=== PATIENT | male | born 1960 | race Caucasian/White ===

== ENCOUNTER 2016-10-09 16:06 | Inpatient (IN) | payer BC ==
[2016-10-09] MEDS ORDERED: Heparin DRIP 25,000 UNITS(*) 25,000 UNITS/500 ML BAG IV ONE (16:29)
[2016-10-09] MEDS ORDERED: NS 0.9% 1000 ML* 1,000 ML IV ONE ×2 (16:31→18:09)
[2016-10-09 16:34] LABS: Hematocrit 45 % (42-52); Hemoglobin 14.9 g/dl (14.0-18.0); Mean Corpuscular HGB Conc 33 g/dl (31-36); Mean Corpuscular Hemoglobin 30 pg (27-31); Mean Corpuscular Volume 89 fL (80-94); Mean Platelet Volume 10 um3 (7.4-10.4); Red Blood Count 5.06 10^6/ul (4.0-5.4); Red Cell Distribution Width 13 % (10.5-15); White Blood Count 14.8 10^3/ul (3.5-10.8)
[2016-10-09] MEDS ORDERED: Heparin DRIP 25,000 UNITS(*) 25,000 UNITS/500 ML BAG IVPB SCH ×2 (16:45→18:15)
[2016-10-09 16:50] LABS: BUN/Creatinine Ratio 21.7 (8-20); Calcium 9.1 mg/dL (8.6-10.3); EGFR African American 93.3 (>60); EGFR Non-African American 72.5 (>60); Globulin 3.1 g/dL (2-4); Potassium 4.1 mmol/L (3.5-5.0); Total Bilirubin 0.9 mg/dL (0.2-1.0); Total Protein 7.1 g/dL (6.4-8.9)
[2016-10-09 16:55] LABS: Troponin I 1.06 ng/mL (<0.04)
[2016-10-09] MEDS ORDERED: Heparin VIAL(*) 5000 UNITS/ML VIAL (FIVE THOUSAND) ONE (16:55)
[2016-10-09] MEDS ORDERED: Iohexol 350* (CONTRAST) 500 ML MDV IV ONE (16:57)
[2016-10-09] MEDS ORDERED: Heparin VIAL(*) 5000 UNITS/ML VIAL (FIVE THOUSAND) IV SCH ×4 (17:00→19:00)
[2016-10-09] MEDS ORDERED: oxyCODONE/Acetamin 5/325 MG* TAB PO PRN (18:03)
[2016-10-09] MEDS ORDERED: Ondansetron INJ* 2 MG/ML VIAL IV PRN (18:03)
--- NOTE | 2016-10-09 18:08 | RAD ---
Indication: Shortness of breath status post leg surgery. Contrast: Administered 79.8 ml of OMNIPAQUE 350 mgi/ml CTA of the chest was performed after IV contrast administration. Coronal and sagittal reconstructed images were obtained. There are large filling defects in both pulmonary arteries filling the main pulmonary artery, lower lobe branches of the pulmonary artery. Findings are consistent with a saddle embolus. There is no mediastinal or hilar adenopathy. The heart demonstrates no pericardial effusion. The trachea and major bronchi appear patent. Lung san demonstrate no evidence of pleural fluid, nodules or masses. There is no mediastinal or hilar adenopathy. The visualized abdominal organs are unremarkable. IMPRESSION: Multiple large pulmonary embolus is noted in both main pulmonary arteries extending to the lobar and segmental branches of the pulmonary artery.
[2016-10-09] MEDS ORDERED: NS 0.9% 1000 ML* 1,000 ML IV SCH (18:15)
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
[2016-10-09] MEDS ORDERED: Alteplase* 50 MG in PREMIX* 100 ML IVPB ONE (18:54)
[2016-10-09] MEDS ORDERED: cefTRIAXone VIAL(*) 1,000 MG in NS 0.9% 50 ML* 50 ML IVPB SCH (20:00)
[2016-10-09] MEDS ORDERED: Azithromycin IV(*) 500 MG in NS 0.9% 250 ML* 250 ML IVPB SCH (20:00)
[2016-10-09] MEDS ORDERED: ALTEPLASE ONE (20:00)
[2016-10-09] MEDS: Acetaminophen TAB* 325 MG PO PRN (20:29)
[2016-10-09] MEDS: Heparin DRIP 25,000 UNITS(*) 25,000 UNITS/500 ML BAG IV SCH (21:39)
--- NOTE | 2016-10-10 00:27 | HP ---
ADDENDUM NOW INCLUDED ON THIS REPORT HISTORY AND PHYSICAL: DATE OF ADMISSION: 10/09/16 PRIMARY CARE PROVIDER: Dr. Arroyo. ATTENDING PHYSICIAN WHILE IN THE HOSPITAL: Dr. Devaughn Nichols * (report dictated by Festus Gonzalez NP). CHIEF COMPLAINT: 1. Chest pain. 2. Shortness of breath. 3. Not feeling well. HISTORY OF PRESENT ILLNESS: Mr. Tanner is a 56-year-old male patient who previously to this was very healthy, very active. He unfortunately about a week to the day was here. He sustained a mechanical fall. He did not hit his head. He stepped off an uneven surface and he fell, injured his right ankle and came to the ER. X- rays were performed and it showed that he had a right ankle fracture. He went to the OR that day, had an ORIF of that ankle and was discharged later the same day. He comes in today, though, stating that he just felt some heaviness, tightness in his chest. Could not take a deep breath. He felt restricted. He had a sudden onset of chest pain and he was having a hard time with minimal exertion, becoming very short of breath. He came in to the ER. He was ultimately found to have a massive saddle pulmonary embolism. He had an elevated troponin of 1. He was tachycardic. He was mildly tachypneic and he was requiring 4 L of oxygen and because of these findings and the fact that he had a massive PE, we were asked to evaluate for admission. He denied any nausea or vomiting. No fevers. He denies having any recent trouble with bleeding. He denies any history of instances of bleeding and denies ever having any intracranial hemorrhage. No history of stroke as well. He came in, was evaluated, and because of acute risk, we were asked to evaluate for admission. PAST MEDICAL HISTORY: Denied. PAST SURGICAL HISTORY: He had a right ankle ORIF done a week ago. HOME MEDICATIONS: Include: 1. Aspirin 325 mg p.o. daily. 2. Ibuprofen 400 mg every 6 to 8 hours as needed for pain. ALLERGIES TO MEDICATIONS: Include no known drug allergies. FAMILY HISTORY: Mother was diabetic. His father had a AAA. SOCIAL HISTORY: He does not smoke. His healthcare proxy is his . He does not drink. 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 REVIEW OF SYSTEMS: There is no documented fever. He denied having any significant weight change. There was no double vision. He denies having any ear discharge. There is no rhinorrhea. No sore throat. No thyroid enlargement. He does admit to having chest pain, particularly when he takes a deep breath. He does admit to having dyspnea on exertion. Denies any abdominal pain. There was no nausea. No vomiting. There is no dysuria. No frequency. Denies having any syncope. Review of 14 systems completed, all others negative. PHYSICAL EXAMINATION GENERAL: At this time, Mr. Tanner is a 56-year-old male patient. He is sitting in the ER stretcher. He does appear to be in a mild amount of respiratory distress. VITAL SIGNS: Blood pressure of 129/89 with a pulse of 111. Respirations were again noted to be 26. O2 sat 95% on 4 L and his temperature was 98.0. HEENT: Head is atraumatic, normocephalic. Eyes: EOMs intact. Sclerae anicteric and not pale. Throat: Oral mucosa appears to be moist. No oropharyngeal erythema. NECK: Supple. LUNGS: Clear to auscultation bilaterally. No wheezes, rales, or rhonchi. HEART: Sounds S1, S2. He is tachycardic. ABDOMEN: Soft, flat, nontender. Bowel sounds present. EXTREMITIES: Distal CSM checks are intact to the right lower extremity. He does have a splint intact there. NEUROLOGIC: He is awake, he is alert, and he is oriented x3. His tongue is midline. Instrument Repairer [employer] are equal. No gross focal deficits. SKIN: Intact. LABORATORY DATA AND DIAGNOSTIC STUDIES: Today reveal WBC of 14.8, RBC of 5.06 , hemoglobin of 14.9, hematocrit of 45, platelet count of 201. PTT was 30.9. Sodium 136, potassium 4.1, chloride of 103, bicarb 25, BUN 23, creatinine of 1.06, glucose 165, lactic 1.4, calcium 9.1. Total bili 0.9, AST 17, ALT 20, alk phos 71. Troponin 1.06. Albumin of 4. He had a CTA of the chest which showed impression: Multiple large pulmonary embolism noted in both main pulmonary arteries extending into the lobar and subsegmental branches of the pulmonary artery, saddle pulmonary embolism. He had an EKG obtained today. I do not have a previous for comparison. It showed a sinus tachycardia rate of 112. Old medical records were reviewed. ASSESSMENT AND PLAN: Mr. Tanner is a 56-year-old male patient coming into the ER today with complaints of chest pain. On evaluation, was found to have a massive pulmonary embolism. He will be admitted under inpatient status for ICU: 1. Pulmonary embolism: At this point, I did touch base with Dr. Nichols, airport driver. I have had a long conversation with him and I contacted him several times. The concern is when I initially evaluated the patient, he is going to be tachycardic. In addition to this, his troponin is up to 1.06. He is tachypneic in the mid 20s and I am also going to put him on Vapotherm. The CT partial images were reviewed by Dr. Nichols who felt that there did appear to be some possible evidence of RV strain just on the CT scan given the size of his right ventricle. The question is should this patient receive tPA. At this point, I did touch base with Dr. Nichols. A surgery specialist is going to be coming in to do a stat echo. If there is severe RV dysfunction, then I think the patient is an appropriate candidate for half-dose tPA. I discussed this with Dr. Nichols at length and he is in agreement. He has already been started on heparin. The plan will be if there is severe dysfunction, stop the heparin drip , go ahead and give tPA half dose, 50 mg over 2 hours IV tPA, and then go ahead and restart the heparin drip and follow this patient closely in the ICU. At this point, I did discuss the risks and benefits of tPA and he is in agreement with going forward with half dose tPA. He also does state to me that he again has not had a stroke. There has been no intracranial or intraspinal surgery. The surgery that was done about 2 weeks ago was again general anesthesia according to the anesthesia paperwork. He has no intracranial conditions that he is aware of. There has been no trauma to the head and he does not have high blood pressure. The patient again has no known bleeding difficulties as well. I also touched base with the Ortho on-call who felt that given our concern, that in terms of the risk of the recent surgery a week ago, they said it was okay to go ahead and give the tPA if we decided it was appropriate based on echo. Again, I had a long discussion with Dr. Nichols about this and again we feel comfortable giving him half dose and we will continue to watch him closely on the unit pending on the results of the echo. If the echo does not show severe RV dysfunction, then we will keep him on a heparin drip, Vapotherm, and place him in the ICU for close observation and follow him. I suspect this is probably a provoked DVT. 2. Elevated troponin. I suspect this is probably from RV strain. We will continue trend these and again, Cardiology is going to evaluate. 3. DVT prophylaxis. Again, he will remain on heparin drip and he will be given tPA. We will follow. He is at high risk. 4. Fluids, electrolytes, and nutrition: I will leave him n.p.o. until we know the course of action based on giving tPA or not giving tPA. 5. Code status: Full code. TIME SPENT: Time spent on the admission which is critical care time was approximately 60 minutes; greater than half the time was spent [id number] with the patient obtaining my history and physical, other half the time spent going over the plan of care with the patient and implementing plan of care. I did discuss the plan of care with my attending, Dr. Nichols; he is in agreement. FESTUS GONZALEZ NP DATE OF ADMISSION: 10/09/16 ADDENDUM: Dr. Tee did come in and performed a stat limited ultrasound, which did show that the patient had a hypokinetic RV. He had already received heparin. I discussed the case again closely with Dr. Nichols. Because of the fact that still his systolic blood pressures are not less than 90, it was felt that we should only proceed with 50 mg doses of heparin per the MOPETT study. We will be giving him 50 mg dose, follow him closely, and then shortly thereafter, we will be going ahead and starting him back on the heparin per the recommendations of Dr. Nichols, and the heparin, when we start after the initial tPA dosing, there will not be any boluses. I did discuss the risks and benefits of this and the patient is in agreement. He does appear again with minimal exertion. He is very tachypneic. He is requiring Vapotherm. Family at this point again knows the risk and they would like to proceed with the half dose tPA at this point. FESTUS GONZALEZ NP CC: Dr. Arroyo; Dr. Tee* [id number]/[facility] #: [id number]/[facility] #: [id number] MTDD
--- NOTE | 2016-10-10 01:08 | HP ---
HISTORY AND PHYSICAL:* DATE OF ADMISSION: 10/09/16 ADDENDUM: Dr. Tee did come in and performed a stat limited ultrasound, which did show that the patient had a hypokinetic RV. He had already received heparin. I discussed the case again closely with Dr. Nichols. Because of the fact that still his systolic blood pressures are not less than 90, it was felt that we should only proceed with 50 mg doses of heparin per the MOPETT study. We will be giving him 50 mg dose, follow him closely, and then shortly thereafter, we will be going ahead and starting him back on the heparin per the recommendations of Dr. Nichols, and the heparin, when we start after the initial tPA dosing, there will not be any boluses. I did discuss the risks and benefits of this and the patient is in agreement. He does appear again with minimal exertion. He is very tachypneic. He is requiring Vapotherm. Family at this point again knows the risk and they would like to proceed with the half dose tPA at this point. FESTUS KELLEY, JULIA [id number]/[facility] #: [id number] MAGDIEL
--- NOTE | 2016-10-10 05:32 | CARD ---
LIMITED TRANSTHORACIC ECHOCARDIOGRAM: DATE OF PROCEDURE: 10/09/16 LOCATION: Done at bedside in the emergency room. DESCRIPTION OF PROCEDURE: I was asked by Mick Gonzalez NP, from the hospitalist service to do a very limited transthoracic echocardiogram in a patient who presented and found to have massive bilateral pulmonary embolism. Limited echo done at bedside in the emergency room showed the overall left ventricular systolic function to be preserved with an overall EF 50% to 55%. The right ventricle appears to be [id number] hypokinetic from the images obtained with paradoxical septal wall motion. Color flow was not performed to evaluate for valvular disease. There is no obvious pericardial effusion appreciated. The results were discussed with Mick Gonzalez NP, from the hospitalist service. [id number]/[facility] #: [id number] MTDD
[2016-10-10 06:41] LABS: Hematocrit 40 % (42-52); Hemoglobin 13.6 g/dl (14.0-18.0); Mean Corpuscular HGB Conc 34 g/dl (31-36); Mean Corpuscular Hemoglobin 30 pg (27-31); Mean Corpuscular Volume 88 fL (80-94); Mean Platelet Volume 10 um3 (7.4-10.4); Red Blood Count 4.55 10^6/ul (4.0-5.4); Red Cell Distribution Width 14 % (10.5-15); White Blood Count 12.8 10^3/ul (3.5-10.8)
[2016-10-10 06:56] LABS: Calcium 8.2 mg/dL (8.6-10.3); EGFR African American 111.2 (>60); EGFR Non-African American 86.5 (>60)
[2016-10-10 06:58] LABS: Troponin I 1.48 ng/mL (<0.04)
[2016-10-10] MEDS: Acetaminophen TAB* 325 MG PO PRN (10:37)
--- NOTE | 2016-10-10 11:06 | ECHO ---
Patient: LIZA GARVIN [facility] Rec#: [id number] : 1960 Date: 10/10/2016 Age: 56y Height: 188 cm / 74.0 in Weight: 99.8 kg / 220.0 lbs Sex: M BSA: 2.3 Room#: ICU 7 Admit Date#: 10/09/2016 Type: Inpatient Referring: Mick Gonzalez NP Reading: Kvng Jesus MD Contemporary Or Modern Dancer: Emely Gibson RN RDCS CC: Pito Arroyo MD Transthoracic Echocardiogram Indication: Pulmonary embolism S/P tPA BP: 119/78 HR: 75 Rhythm: NSR Findings History: Right ankle ORIF 1 week ago, bilateral pulmonary emboli by CTA, S/P tPA Technical Comments: The study quality is fair. The study is technically limited due to patient body habitus. Completed at 0930. Left Ventricle: The left ventricular chamber size is normal. Mild concentric left ventricular hypertrophy is observed. Mild global hypokinesis of the left ventricle is observed. There is mildly decreased left ventricular systolic function. The estimated ejection fraction is 50-55%. There is septal flattening of the interventricular septum consistent with right ventricular volume or pressure overload. There is an E to A reversal in the mitral valve flow pattern suggestive of diastolic dysfunction. Left Atrium: The left atrial chamber size is normal. Right Ventricle: The right ventricle is mild to moderately dilated. The right ventricular global systolic function is moderately reduced. Right Atrium: The right atrium is mildly dilated. Aortic Valve: The aortic valve is trileaflet. The aortic valve leaflets are mildly thickened. There is trace to mild aortic regurgitation. There is no evidence of aortic stenosis. Mitral Valve: The mitral valve leaflets appear normal. There is a trace of mitral regurgitation. There is no evidence of mitral stenosis. Tricuspid Valve: The tricuspid valve leaflets are normal. There is trace to mild tricuspid regurgitation. Unable to estimate the right ventricular systolic pressure. Pulmonic Valve: The pulmonic valve appears normal. There is mild to moderate pulmonic regurgitation. There is no pulmonic stenosis. Pericardium: There is no significant pericardial effusion. A pericardial fat pad is visualized. Aorta: There is mild dilatation of the ascending aorta. There is no dilatation of the aortic arch. There is mild dilatation of the aortic root. Pulmonary Artery: The main pulmonary artery is not well visualized. Venous: The inferior vena cava appears normal in size. There is an approximate 50% respiratory change in the inferior vena cava dimension. Conclusions Mild concentric left ventricular hypertrophy is observed. Mild global hypokinesis of the left ventricle is observed. There is mildly decreased left ventricular systolic function. The estimated ejection fraction is 50-55%. There is septal flattening of the interventricular septum consistent with right ventricular volume or pressure overload. The right ventricular global systolic function is moderately reduced. The right ventricle is mild to moderately dilated. The aortic valve leaflets are mildly thickened. There is trace to mild aortic regurgitation. There is a trace of mitral regurgitation. There is trace to mild tricuspid regurgitation. Unable to estimate the right ventricular systolic pressure. There is no significant pericardial effusion. Measurements Name Value Normal Range RVIDd (AP) 2D 4.6 cm (0.9 - 2.6) RVDdMajor (2D) 4.7 cm (2.2 - 4.4) RAd ISD 4CH 5.1 cm (3.4 - 4.9) RA (A4C)W 4.2 cm (2.9 - 4.6) IVSd (2D) 1.1 cm (0.6 - 1) LVPWd (2D) 1.1 cm (0.6 - 1) LVIDd (2D) 4.7 cm (3.6 - 5.4) LVIDs (2D) 3.3 cm - LV FS (2D) 29 % (25 - 45) Aortic Annulus 2.7 cm (1.4 - 2.6) Ao root diameter (2D) 3.9 cm (2.1 - 3.5) Ascending Ao 3.5 cm (2.1 - 3.4) Aortic arch 2.8 cm (1.8 - 3.4) LA dimension (AP) 2D 3.6 cm (2.3 - 3.8) LAd ISD 4CH 4.8 cm (2.9 - 5.3) LA ISD 4CH W 4 cm (2.5 - 4.5) Name Value Normal Range LA ESV SP 4CH (A/L) 64 ml - LA ESV SP 2CH (A/L) 60 ml - LA ESV BP (A/L) 62 ml - LA ESV BP (A/L) index 27.5 ml/m2 - LA ESV SP 4CH (MOD) 62 ml - LA ESV SP 2CH (MOD) 56 ml - LV mass (2D) 218.9 g - LV mass (2D) index 96.86 g/m2 - Name Value Normal Range MV E-wave Vmax 0.61 m/sec - MV deceleration time 264 msec - MV A-wave Vmax 0.75 m/sec - MV E:A ratio 0.8 ratio - LV septal e' Vmax 0.07 m/sec - LV lateral e' Vmax 0.12 m/sec - LV E:e' septal ratio 8.7 ratio - LV E:e' lateral ratio 5.1 ratio - Name Value Normal Range AV Vmax 1.2 m/sec - AV VTI 26.5 cm - AV peak gradient 6 mmHg - AV mean gradient 4 mmHg - LVOT Vmax 0.91 m/sec - LVOT VTI 17.9 cm - LVOT peak gradient 3 mmHg - LVOT mean gradient 2 mmHg - ELLY Vmax 0.74 m/sec - Name Value Normal Range IVC diameter 1.9 cm - Name Value Normal Range PV Vmax 0.8 m/sec -
--- NOTE | 2016-10-10 11:20 | PN ---
Progress Note - Progress Note Note: CRITICAL CARE MEDICINE Date: 10/10/16 Time: 900 SUBJECTIVE: Patient seen and examined. PHYSICAL EXAM: fit Vital Signs: Reviewed. Hr has come down from 100s to 70s overnight. RR dec. Diastolics decreased. Neurologic: nonfocal, comm well HEENT: pupils equal. Sclera anicteric. Trachea midline. Cardiovascular: S1 S2, no m appreciated Respiratory: clear bl Abdomen: Soft, nt. No r/g/r. Extremities: Warm. R ankle cast Access: piv LABS: Reviewed. IMAGING: Reviewed. MEDICATIONS: Reviewed. 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 Conveyed pts clinical condition and PE burden even without seeing images (which I did eventually see last night) and obtaining echo with proceeding to 1/2 dose tpa based on [facility] study given his submassive burden, elevated troponin, post recent ortho surgery , already on heparin and oupt asa, and maintaining SBP. Recent R ankle fx PLAN: Doing well. feels better. On heparin gtt. Can convert to xerato starting tonight. can obtain official echo today. and may need oupt f/u in 1 month if any residual R heart strain needing f/u. Off ivf. oob. po. can advance care and look to set up outpt f/u. Supportive and preventative care as ordered. Vaccine: SUP: ppi VTE prophylaxis: on heparin Disposition: ICU this am, and likely floor later, and potential dc soon Code Status: Full Critical Care Time: 35min Emily Nichols DO
--- NOTE | 2016-10-10 13:21 | PN ---
Progress Note - Progress Note Note: CRITICAL CARE MEDICINE Date: 10/10/16 Time: 1300 Doing well. can wean off O2. Hemodynamics are well. tx on heparin. can dc tonight in favor of xeralto initiation. leave on tele tonight. hopefully stable for dc tomorrow. Disposition: floor with tele. Code Status: Full Critical Care Time: 5min Emily Nichols DO
--- NOTE | 2016-10-10 15:12 | PN ---
Progress Note - Progress Note Note: I saw Mr. Tanner this afternoon. I performed his ankle surgery last Monday. They state he had been taking the aspirin. He received TPA and has been on a heparin drip. My understanding that the plan is to switch him to Xarelto today. He's feeling much better today. Exam shows that he is still mildly short of breath. He's awake, alert, and oriented. No apparent distress. The splint is clean, dry, and intact. There is no blood on the dressings. A/P: Doing better s/p massive PE yesterday. Okay to have whatever anticoagulant is deemed appropriate. I will defer to his medical team for the need for a hypercoagulability workup. I plan to see him in follow up this Monday or it can be next week if he is not quite up to making the drive this Monday. Less than 20 pounds weight bearing on the right leg.
[2016-10-10] MEDS: Heparin DRIP 25,000 UNITS(*) 25,000 UNITS/500 ML BAG IV SCH (21:08)
[2016-10-10] MEDS: Rivaroxaban TAB(*) 15 MG PO SCH (21:25)
[2016-10-11 05:14] LABS: BUN/Creatinine Ratio 19.6 (8-20); Calcium 8.8 mg/dL (8.6-10.3); EGFR African American 103.3 (>60); EGFR Non-African American 80.4 (>60); Potassium 4.3 mmol/L (3.5-5.0)
[2016-10-11 05:20] LABS: Hematocrit 42 % (42-52); Hemoglobin 13.8 g/dl (14.0-18.0); Mean Corpuscular HGB Conc 33 g/dl (31-36); Mean Corpuscular Hemoglobin 29 pg (27-31); Mean Corpuscular Volume 89 fL (80-94); Mean Platelet Volume 10 um3 (7.4-10.4); Red Blood Count 4.72 10^6/ul (4.0-5.4); Red Cell Distribution Width 14 % (10.5-15); White Blood Count 11.3 10^3/ul (3.5-10.8)
[2016-10-11 08:55] VITALS: BP 127/76
[2016-10-11] MEDS: Rivaroxaban TAB(*) 15 MG PO SCH (09:01)
--- NOTE | 2016-10-11 13:41 | DS ---
CC: Dr. Arroyo; Dr. Rubio * DISCHARGE SUMMARY: DATE OF ADMISSION: 10/09/16 DATE OF DISCHARGE: 10/11/16 PRIMARY CARE PROVIDER: Dr. Arroyo. FURNACE OPERATOR: Dr. Nichols. * (DICTATED BY ELE STRONG) CONSULTING LEAF COVERER: Dr. Tee. PRIMARY DISCHARGE DIAGNOSES: 1. Bilateral pulmonary embolism with acute cor pulmonale, receiving TPA. 2. Demand ischemia likely secondary to right ventricular strain. DISCHARGE MEDICATIONS: Xarelto 15 mg p.o. twice daily x21 days, to be followed by 20 mg p.o. once daily for a total of 6 months. Medication changes: 1. Discontinue full dose aspirin. 2. Start Xarelto. HOSPITAL IMAGIN. CTA of the chest demonstrates multiple large pulmonary embolus noted in both main pulmonary arteries extending to the lobar and segmental branches of the pulmonary artery. 2. Transthoracic echocardiogram demonstrates mild global hypokinesis of the left ventricle with estimated ejection fraction of 50% to 55%. There is septal flattening of the intraventricular septum consistent with right ventricular volume or pressure overload with a right ventricular global systolic function that is moderately reduced and dilated. No significant valvular disease. HOSPITAL COURSE: This is an otherwise healthy 56-year-old gentleman who underwent ORIF of his right ankle approximately 1 week prior to admission, who presented to the emergency department with complaints of chest pain and shortness of breath. His pain has started earlier in the day mostly as a heaviness and tightness sensation in his chest and he felt that he was unable to take a deep breath and then had a sudden onset of severe chest pain and became quite dyspneic with mild activity. When he reached the emergency department, initial vitals did not demonstrate significant hypoxia, but he was tachycardic about 110 beats per minute with normal blood pressure, but he was tachypneic with a respiratory rate in the mid 20s or so. Initial labs showed a mild leukocytosis with a white blood cell count of 14,800 and his initial troponin was elevated at 1.06. His initial EKG showed a sinus rhythm with perhaps some mild ST elevation, mostly appreciated in mid precordial leads. No old EKG was available for comparison at that time. D- dimer was not checked, but the patient went straight to CTA which showed large bilateral PEs involving both main pulmonary arteries. [employer] was asked to come to do a stat bedside echocardiogram to evaluate right ventricular function which was noted to be moderately reduced and the patient was quite dyspneic with a large clot burden. Decision was made after consulting with bordereau clerk, Dr. Nichols, to give TPA. The patient responded quite well and his symptoms improved significantly after receiving the TPA. He remained hemodynamically stable. His dyspnea and tachycardia improved. The patient's oxygen needs decreased significantly as well and he had no further complaints of chest pain or dyspnea with mild exertion. DISPOSITION AND FOLLOWUP PLAN: The patient is being discharged to home where he lives with his . He will be anticoagulated with Xarelto as described above. He will need a new prescription after the initial 3 weeks is up and start on 20 mg once daily. We would recommend a repeat echocardiogram between 2 and 4 weeks to reevaluate right ventricular function. The patient does not require supplemental oxygen returning home. Recommend close followup with primary care provider to review hospital stay. He will need to be anticoagulated for 6 months, at which point could consider coagulopathy workup. ELE STRONG [id number]/[facility] #: [id number] MAGDIEL
== END 2016-10-11 10:30 | disposition home or self-care (01) | DRG 134 ==
LOC: ED 16:06 → ICU 17:58 → MEDTELE 10-10 14:53
PROVIDERS: ADMIT Internal Medicine Critical Care Medicine; ATTEND Internal Medicine
DX: I26.02 Saddle embolus of pulmonary artery with acute cor pulmonale (principal); I24.8 Other forms of acute ischemic heart disease; R74.8 Abnormal levels of other serum enzymes; I51.9 Heart disease, unspecified; Z98.890 Other specified postprocedural states; Z83.3 Family history of diabetes mellitus
CPT/HCPCS: 36415; 71275; 80048; 80053; 83605; 84484; 85025; 85610; 85730; 87040; 87641; 93005; 93306; 93308; A9270-GY; J0456; J0696; J1644; J2997; Q9967

== ENCOUNTER 2017-09-12 08:24 | Emergency (ER) | payer BC ==
[2017-09-12 08:36] VITALS: BP 156/88
--- NOTE | 2017-09-12 08:47 | UC ---
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 TODAY HE HAD SOME DISCOMFORT RIGHT UPPER BACK. NOTICED A TICK. REMOVED IT BUT THERE ARE SOME TICK PARTS REMAINING. TICK WAS ENGORGED. - History of Current Complaint Chief Complaint: UCSkin Time Seen by Provider: 09/12/17 08:39 Stated Complaint: TICK BITE Hx Obtained From: Patient Onset/Duration: Gradual Onset, Lasting Days - 1 DAY, Still Present Timing: Constant Onset Severity: Mild Current Severity: Mild Pain Intensity: 0 Pain Scale Used: 0-10 Numeric Location: Discrete - RIGHT UPPER BACK Character: Redness, Painful Aggravating Factor(s): Touch Alleviating Factor(s): Nothing Associated Signs & Symptoms: Positive: Tenderness Related History: Possible Reaction to: Insect - Allergy/Home Medications Allergies/Adverse Reactions: Allergies Allergy/AdvReac Type Severity Reaction Status Date / Time No Known Allergies Allergy Verified 09/12/17 08:36 Review of Systems Constitutional: Negative Skin: Other - TICK BITE WITH SURROUNDING ERYTHEMA Respiratory: Negative Cardiovascular: Negative Gastrointestinal: Negative All Other Systems Reviewed And Are Negative: Yes PMH/Surg Hx/FS Hx/Imm Hx - Additional Past Medical History Additional PMH: DVT/PE S/P LEG FRACTURE - Surgical History Surgical History: Yes Surgery Procedure, Year, and Place: [place] [facility] [place] [facility] [place]. ORIF right leg - Family History Known Family History: Positive: Cardiac Disease, Hypertension - Social History Alcohol Use: Occasionally Alcohol Amount: 3 vodkas Substance Use Type: None Smoking Status (MU): Never Smoked Tobacco Household Exposure Type: Cigarettes - Immunization History Most Recent Influenza Vaccination: February 2016 Most Recent Tetanus Shot: states probably within 5 years but is not 100% sure Most Recent Pneumonia Vaccination: never Physical Exam Triage Information Reviewed: Yes Appearance: Well-Appearing, No Pain Distress, Well-Nourished Vital Signs: Initial Vital Signs Temp 98.2 F 09/12/17 08:33 Pulse 64 09/12/17 08:33 Resp 16 09/12/17 08:33 BP 156/88 09/12/17 08:33 Pulse Ox 97 09/12/17 08:33 Vital Signs Reviewed: Yes Eyes: Positive: Conjunctiva Clear ENT: Positive: Hearing grossly normal Neck: Positive: Supple Respiratory: Positive: No respiratory distress, No accessory muscle use Cardiovascular: Positive: Pulses Normal Abdomen Description: Positive: Soft Musculoskeletal: Positive: No Edema Neurological: Positive: Alert Psychological: Positive: Age Appropriate Behavior Skin: Positive: Other - TICK BITE SITE RIGHT UPPER BACK WITH RETAINED TICK PARTS Course/Dx - Course Course Of Treatment: TICK PARTS REMOVED WITHOUT DIFFICULTY USING [employer]UGE AND [employer]PLINTER [employer]. - Diagnoses Provider Diagnoses: TICK BITE, LYME PEP Discharge - Sign-Out/Discharge Documenting (check all that apply): Discharge/Admit/Transfer - Discharge Plan Condition: Stable Disposition: HOME Prescriptions: Doxycycline Monohydrate [Doxycycline Monohydrate] 2 cap PO ONCE #2 cap Patient Education Materials: Tick Bite (ED) Referrals: Pito Arroyo MD [Primary Care Provider] - If Needed Additional Instructions: TICK BITE PROPHYLAXIS You received 200mg of doxycycline for prophylaxis against Lyme disease. The Infectious Disease Society of [place] (IDSA) does not generally recommend antimicrobial prophylaxis for prevention of Lyme disease after a recognized tick bite. However, in areas that are highly endemic for Lyme disease, a single dose of doxycycline may be offered to adult patients (200 mg) who are not and to children older than 8 years of age (4 mg/kg up to a maximum dose of 200 mg) when all of the following circumstances exist: CRITERIA FOR RECEIVING PROPHYLACTIC TREATMENT FOR LYME DISEASE 1) TICK ATTACHED FOR AT LEAST 36 HRS 2) TICK IS AN ADULT OR [place] DEER TICK 3) YOU LIVE IN AN AREA WHERE LYME DISEASE IS PREVALENT (i.e., [place], [place], [place], , [place] , [place], [place], [place], [place], [place], [place], [place], [place], [place]) 4) YOU HAVE NO CONTRAINDICATION TO THE MEDICATION (DOXYCYCLINE) 5) PROPHYLAXIS IS BEGUN WITHIN 72 HRS OF TICK REMOVAL BE VIGILANT OF YOUR SYMPTOMS AND DON'T HESITATE TO GET SEEN AGAIN IF YOU DEVELOP UNEXPLAINED FEVER, HEADACHE, JOINT PAIN, BODY ACHES, RASH OR ANY OTHER CONCERNING SYMPTOMS. Antibiotic treatment following a tick bite is not recommended as a means to prevent anaplasmosis, babesiosis, ehrlichiosis, or [place] spotted fever. There is no evidence this practice is effective, and it may simply delay onset of disease. Instead, persons who experience a tick bite should be alert for symptoms suggestive of tickborne illness and consult a physician if fever, rash, or other symptoms of concern develop. - Billing Disposition and Condition Condition: STABLE Disposition: HOME
== END 2017-09-12 08:50 | disposition home or self-care (01) ==
LOC: UCEAST 08:24
DX: S20.461A Insect bite (nonvenomous) of right back wall of thorax, initial encounter (principal); W57.XXXA Bitten or stung by nonvenomous insect and other nonvenomous arthropods, initial encounter; Y93.H9 Activity, other involving exterior property and land maintenance, building and construction; Y92.096 Garden or yard of other non-institutional residence as the place of occurrence of the external cause; Z86.718 Personal history of other venous thrombosis and embolism; Z86.711 Personal history of pulmonary embolism
CPT/HCPCS: 99212; G0463

== ENCOUNTER 2018-09-26 12:11 | Inpatient (IN) | payer BC ==
--- OUTSIDE RECORDS SUMMARY | 2018-09-26 12:17 | XMS REPORT | Continuity of Care Document ---
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 Onset: 11/23/2016 Inactive Problems Allergic rhinitis Rupesh Whiting M.D. Onset: 06/27/2012 Inactive: 07/03/2017 Cellulitis and abscess of upper limb Александр Chaudhry M.D. Onset: 12/25/2012 Inactive: 07/03/2017 Eruption Александр Chaudhry M.D. Onset: 12/25/2012 Inactive: 07/03/2017 Umbilical hernia Pito Arroyo M.D. Onset: 09/25/2013 Inactive: 07/03/2017 Open wound of finger with complication Pito Arroyo M.D. Onset: 2013 Inactive: 07/03/2017 Benign neoplasm of colon Pito Arroyo M.D. Onset: 02/10/2015 Inactive: 07/03/2017 Acute cor pulmonale Pito Arroyo M.D. Onset: 11/23/2016 Inactive: 07/03/2017 Family History Date Family Member(s) Observation Comments Father Abdominal Aortic Aneurysm Social History Type Date Description Comments Sex Unknown Living Situation Lives with spouse Employment Currently working Tobacco Use Start: Unknown Nonsmoker ETOH Use Social Alcohol Tobacco Use Start: Unknown Patient has never smoked Allergies, Adverse Reactions, Alerts Description No Known Drug Allergies Medications Active Medications SIG Qnty Indications Ordering Provider Date No Active Medications Unknown 07/03/2017 History Medications Enoxaparin Sodium 100 mg sq two 30ml Pito Arroyo, 11/23/2016 - times a day M.D. 11/28/2016 100mg/ml Solution Warfarin Sodium take 1 tablet by 90tabs Pito Arroyo, 11/23/2016 - 5mg mouth every day M.D. 04/11/2017 Tablets Xarelto 1 by mouth every 90tabs Pito Arroyo, 11/02/2016 - 20mg Tablets day M.D. 11/23/2016 Doxycycline Hyclate 1 po bid 28caps 682.3 Александр Chaudhry, 12/25/2012 - M.D. 04/22/2013 100mg Capsules No Active Unknown 07/26/2012 - Medications 12/25/2012 Viagra take 1/2 to 1 10tabs V41.7 Pito Arroyo, 02/18/2009 - 100mg Tablets tablet 15 minutes M.D. 07/26/2012 prior to sexual activity as directed Keflex 1 po bid 20caps Александр Chaudhry, 02/02/2006 - 500mg Capsules M.D. 04/10/2007 Clarinex 1 po qd 30tabs 477.8 Pito Arroyo, 07/06/2005 - 5mg Tablets M.D. 02/02/2006 Astelin 2 sprays/nostril 30cc 477.8 Pito Arroyo, 07/06/2005 - 137mcg/[place] bid prn M.D. 02/02/2006 Xarelto 1 by mouth twice 90tabs Pito Arroyo, - 15mg Tablets a day M.D. 11/02/2016 Xarelto 1 by mouth every Unknown - 15mg Tablets day 07/04/2017 Medications Administered in Office Medication SIG Qnty Indications Ordering Provider Date Injection Subcutaneous Or Pito Arroyo M.D. 11/23/2016 Intramuscular Injection Immunizations CPT Code Status Date Vaccine Lot # [id number] Given 04/11/2017 Influenza vac quadrivalent preservative free 3yrs [id number] [place] [id number] Given 05/18/2016 Influenza Vac, Quadrivalent, Slit Virus, Im [id number] Given 02/10/2015 Influenza Vac, Quadrivalent, Slit Virus, Im [id number] Given 04/22/2014 Tetanus And Diptheria Adult Preservative Free >7Yrs 73870 Given 02/18/2009 Tdap Tetanus, W Pertussis [id number] Vital Signs Date Vital Result Comment 09/26/2018 10:24am BP Systolic 104 mmHg BP Diastolic 70 mmHg Heart Rate 133 /min Body Temperature 97.7 F Respiratory Rate 16 /min O2 % BldC Oximetry 98 % Height 73.75 inches 6'1.75" Weight 241.00 lb BMI (Body Mass Index) 31.1 kg/m2 10/10/2017 11:21am BP Systolic 124 mmHg BP Diastolic 82 mmHg Heart Rate 56 /min Body Temperature 97.2 F Respiratory Rate 16 /min Height 73.75 inches 6'1.75" Weight 231.00 lb BMI (Body Mass Index) 29.9 kg/m2 07/03/2017 10:51am BP Systolic 136 mmHg BP Diastolic 80 mmHg Heart Rate 68 /min Body Temperature 98.1 F Respiratory Rate 16 /min Height 73.75 inches 6'1.75" Weight 227.00 lb BMI (Body Mass Index) 29.3 kg/m2 04/11/2017 9:15am BP Systolic 122 mmHg BP Diastolic 64 mmHg Heart Rate 60 /min Body Temperature 97.5 F Respiratory Rate 16 /min Height 73.75 inches 6'1.75" Weight 229.25 lb BMI (Body Mass Index) 29.6 kg/m2 11/23/2016 7:53am BP Systolic 120 mmHg BP Diastolic 76 mmHg Heart Rate 84 /min Body Temperature 97.5 F Respiratory Rate 16 /min Height 73.75 inches 6'1.75" Weight 226.38 lb BMI (Body Mass Index) 29.3 kg/m2 10/18/2016 11:15am BP Systolic 104 mmHg BP Diastolic 64 mmHg Heart Rate 80 /min Body Temperature 97.9 F Respiratory Rate 16 /min O2 % BldC Oximetry 98 % Height 73.75 inches 6'1.75" 05/26/2016 3:36pm BP Systolic 122 mmHg BP Diastolic 70 mmHg Heart Rate 88 /min Body Temperature 97.7 F Respiratory Rate 12 /min Height 73.75 inches 6'1.75" Weight 245.00 lb BMI (Body Mass Index) 31.7 kg/m2 05/18/2016 12:51pm BP Systolic 150 mmHg BP Diastolic 90 mmHg Heart Rate 60 /min Body Temperature 96.9 F Respiratory Rate 12 /min Height 73.75 inches 6'1.75" Weight 246.00 lb BMI (Body Mass Index) 31.8 kg/m2 02/10/2015 9:09am BP Systolic 124 mmHg BP Diastolic 72 mmHg Heart Rate 68 /min Body Temperature 97.8 F Respiratory Rate 16 /min Height 74 inches 6'2" Weight 240.00 lb BMI (Body Mass Index) 30.8 kg/m2 05/13/2014 10:50am BP Systolic 110 mmHg BP Diastolic 70 mmHg Heart Rate 68 /min Body Temperature 97.4 F Respiratory Rate 16 /min Height 74 inches 6'2" Weight 244.00 lb BMI (Body Mass Index) 31.3 kg/m2 05/02/2014 8:12am BP Systolic 112 mmHg BP Diastolic 70 mmHg Heart Rate 70 /min Body Temperature 97.9 F Respiratory Rate 14 /min Height 74 inches 6'2" Weight 244.00 lb BMI (Body Mass Index) 31.3 kg/m2 09/25/2013 8:36am BP Systolic 100 mmHg BP Diastolic 70 mmHg Heart Rate 68 /min Body Temperature 96.8 F Respiratory Rate 12 /min Height 74 inches 6'2" Weight 237.00 lb BMI (Body Mass Index) 30.4 kg/m2 04/22/2013 10:22am BP Systolic 130 mmHg BP Diastolic 80 mmHg Heart Rate 60 /min Body Temperature 97.2 F Respiratory Rate 12 /min Height 74 inches 6'2" Weight 241.00 lb BMI (Body Mass Index) 30.9 kg/m2 12/25/2012 1:53pm BP Systolic 128 mmHg BP Diastolic 90 mmHg Heart Rate 84 /min Body Temperature 100.1 F Respiratory Rate 16 /min Height 74 inches 6'2" Weight 231.25 lb BMI (Body Mass Index) 29.7 kg/m2 07/26/2012 4:04pm BP Systolic 120 mmHg BP Diastolic 90 mmHg Heart Rate 64 /min Body Temperature 97.6 F Respiratory Rate 12 /min Height 74 inches 6'2" Weight 245.00 lb BMI (Body Mass Index) 31.5 kg/m2 Right Visual Acuity Distance 20/40 uncorrected Left Visual Acuity Distance 20/25 uncorrected 06/27/2012 9:30am BP Systolic 140 mmHg BP Diastolic 90 mmHg Heart Rate 76 /min Body Temperature 97.7 F Respiratory Rate 18 /min Height 74 inches 6'2" Weight 244.00 lb BMI (Body Mass Index) 31.3 kg/m2 08/06/2009 2:57pm BP Systolic 140 mmHg BP Diastolic 90 mmHg Heart Rate 72 /min Body Temperature 98.3 F Respiratory Rate 16 /min O2 % BldC Oximetry 98 % Height 74 inches 6'2" Weight 250.00 lb BMI (Body Mass Index) 32.1 kg/m2 02/18/2009 6:39pm BP Systolic 132 mmHg BP Diastolic 80 mmHg Heart Rate 80 /min Body Temperature 98.5 F Respiratory Rate 16 /min Height 74 inches 6'2" Weight 243.00 lb BMI (Body Mass Index) 31.2 kg/m2 04/10/2007 10:57am BP Systolic 130 mmHg BP Diastolic 86 mmHg Heart Rate 68 /min Body Temperature 97.5 F Respiratory Rate 12 /min Weight 230.00 lb 02/02/2006 1:31pm BP Systolic 130 mmHg BP Diastolic 84 mmHg Heart Rate 72 /min 07/06/2005 8:55am BP Systolic 124 mmHg BP Diastolic 80 mmHg Heart Rate 72 /min Body Temperature 98.2 F Respiratory Rate 16 /min Weight 224.00 lb 09/08/2004 3:02pm BP Systolic 130 mmHg BP Diastolic 86 mmHg Heart Rate 72 /min Respiratory Rate 18 /min Weight 224.00 lb Results Test Date Facility Test Result H/L Range Note Laboratory test 09/26/2018 [facility] Troponin-I/T <0.05 NG/ML 0- 0.64 finding (607)- - nI D Dimer Quant (Fma) <100 ng/mL 0.0-400 Lipid Profile 07/03/2017 [facility](fma) Cholesterol 197 mg/dL 120- 200 Triglycerides 134 mg/dL 30-200 HDL Cholesterol 40 mg/dL 30-70 LDL (Calculated) 130 CALC High 0-129 VLDL Cholesterol 27 mg/dL 0-50 HDL Risk Factor 4.9 CALC High 0.0-4.4 Comprehensive Metabolic 07/03/2017 [facility](fma) Sodium 135 mEq/L 134-149 Prof Potassium 4.1 mEq/L 3.6-5.5 Chloride 96 mEq/L 94-112 Carbon Dioxide 24 mEq/L 21-32 Glucose 93 mg/dL 70-105 BUN 25 mg/dL 6-26 Creatinine 0.9 mg/dL 0.6-1.4 BUN/Creat Ratio 27.8 CALC 8.0-36.0 Calcium 9.8 mg/dL 8.6-10.2 Total Protein 6.9 g/dL 6.4-8.3 Albumin 4.6 g/dL 3.8-5.5 Globulin 2.3 g/dL 2.0-4.8 A/G Ratio 2.0 CALC 0.6-2.3 Alk. Phosphatase 74 U/L 22-95 Alt (SGPT) 18 U/L 7-35 Ast (Sgot) 15 U/L 5-34 Total Bilirubin 0.7 mg/dL 0.2-1.3 GFR Non- >60 ml/min/1.73m^ >=60 GFR >60 ml/min/1.73m^ >=60 Laboratory test 07/03/2017 [facility](fma) PSA 0.9 ng/mL 0.0-4.0 finding Laboratory test 12/19/2016 [facility] Inr/Protime 1.83 High 0.89-1.11 finding Laboratory test 12/16/2016 [facility] Inr (Fma) 2.1 2.0-3.0 finding (607)- - Laboratory test 12/06/2016 [facility] In[facility] (Fma) 3.0 2.0-3.0 finding (607)- - Laboratory test 12/02/2016 [facility] In[facility] (Fma) 2.8 2.0-3.0 finding (607)- - Laboratory test 11/30/2016 [facility] In[facility] (Fma) 2.5 2.0-3.0 finding (607)- - Laboratory test 11/28/2016 [facility] In[facility] (Fma) 1.6 Low 2.0-3.0 finding (607)- - Laboratory test 11/23/2016 [facility] Hemoglobin A1c 5.8 % High 4.1- 5.7 finding (607)- - (Fma) Lipid Profile 11/23/2016 Os[facility] Aquino([facility]) Cholesterol 192 mg/dL 120- 200 Triglycerides 92 mg/dL 30-200 HDL Cholesterol 42 mg/dL 30-70 LDL (Calculated) 132 CALC High 0-129 VLDL Cholesterol 18 mg/dL 0-50 HDL Risk Factor 4.6 CALC High 0.0-4.4 Comprehensive Metabolic 11/23/2016 Osito Kenia([facility]) Sodium 134 mEq/L 134-149 Prof Potassium 4.1 mEq/L 3.6-5.5 Chloride 95 mEq/L 94-112 Carbon Dioxide 23 mEq/L 21-32 Glucose 126 mg/dL High 70-105 BUN 24 mg/dL 6-26 Creatinine 1.1 mg/dL 0.6-1.4 BUN/Creat Ratio 21.8 CALC 8.0-36.0 Calcium 9.7 mg/dL 8.6-10.2 Total Protein 7.3 g/dL 6.4-8.3 Albumin 4.6 g/dL 3.8-5.5 Globulin 2.7 g/dL 2.0-4.8 A/G Ratio 1.7 CALC 0.6-2.3 Alk. Phosphatase 63 U/L 22-95 Alt (SGPT) 14 U/L 7-35 Ast (Sgot) 12 U/L 5-34 Total Bilirubin 1.3 mg/dL 0.2-1.3 GFR Non- >60 ml/min/1.73m^ >=60 GFR >60 ml/min/1.73m^ >=60 Lipid Profile 05/18/2016 Osito Aquino([facility]) Cholesterol 231 mg/dL High 120-200 Triglycerides 147 mg/dL 30-200 HDL Cholesterol 46 mg/dL 30-70 LDL (Calculated) 156 CALC High 0-129 VLDL Cholesterol 29 mg/dL 0-50 HDL Risk Factor 5.0 CALC High 0.0-4.4 Comprehensive Metabolic 05/18/2016 Osito Kenia([facility]) Sodium 140 mEq/L 134-149 Prof Potassium 4.4 mEq/L 3.6-5.5 Chloride 98 mEq/L 94-112 Carbon Dioxide 31 mEq/L 21-32 Glucose 115 mg/dL High 70-105 1 BUN 19 mg/dL 6-26 Creatinine 1.0 mg/dL 0.6-1.4 BUN/Creat Ratio 19.0 CALC 8.0-36.0 Calcium 9.5 mg/dL 8.6-10.2 Total Protein 7.0 g/dL 6.4-8.3 Albumin 4.5 g/dL 3.8-5.5 Globulin 2.5 g/dL 2.0-4.8 A/G Ratio 1.8 CALC 0.6-2.3 Alk. Phosphatase 63 U/L 22-95 Alt (SGPT) 27 U/L 7-35 Ast (Sgot) 17 U/L 5-34 Total Bilirubin 1.0 mg/dL 0.2-1.3 GFR Non- >60 ml/min/1.73m^ >=60 GFR >60 ml/min/1.73m^ >=60 Laboratory 05/18/2016 [facility](fma) PSA 1.1 ng/mL 0.0-4.0 2 test finding Laboratory 05/18/2016 [facility] Hepatitis C Nonreactive N Nonreactive 3 test finding Antibody Laboratory 11/17/2015 [facility] Surgical SEE RESULT 4 test finding Pathology BELOW Laboratory 02/10/2015 [facility] Hemoglobin 5.8 g/dL Low 12.1 - 17.2 test finding (607)- - (Fma/CMC/CTX) Laboratory 02/10/2015 [facility](fma) PSA 1.2 ng/mL 0.0-4.0 test finding Lipid Profile 02/10/2015 [facility] Kenia(fma) Cholesterol 231 mg/dL High 120-200 Triglycerides 116 mg/dL 30-200 HDL Cholesterol 47 mg/dL 30-70 LDL (Calculated) 161 CALC High 0-129 VLDL Cholesterol 23 mg/dL 0-50 HDL Risk Factor 4.9 CALC High 0.0-4.4 Comprehensive Metabolic 02/10/2015 [facility] Kenia(fma) Sodium 140 mEq/L 134-149 Prof Potassium 4.5 mEq/L 3.6-5.5 Chloride 102 mEq/L 94-112 Carbon Dioxide 26 mEq/L 21-32 Glucose 125 mg/dL High 70-105 5 BUN 25 mg/dL 6-26 Creatinine 1.0 mg/dL 0.6-1.4 BUN/Creat Ratio 25.0 CALC 8.0-36.0 Calcium 9.7 mg/dL 8.6-10.2 Total Protein 7.0 g/dL 6.4-8.3 Albumin 4.5 g/dL 3.8-5.5 Globulin 2.5 g/dL 2.0-4.8 A/G Ratio 1.8 CALC 0.6-2.3 Alk. Phosphatase 59 U/L 22-95 Alt (SGPT) 27 U/L 7-35 Ast (Sgot) 19 U/L 5-34 Total Bilirubin 1.3 mg/dL 0.2-1.3 GFR Non- >60 ml/min/1.73m^ >=60 GFR >60 ml/min/1.73m^ >=60 Laboratory test 09/25/2013 [facility] Kenia(fma) PSA 1.6 ng/mL 0.0-4.0 finding Lipid Profile 09/25/2013 [facility] Kenia(fma) Cholesterol 188 mg/dL 120- 200 Triglycerides 68 mg/dL 30-200 HDL Cholesterol 42 mg/dL 30-70 LDL (Calculated) 132 CALC High 0-129 VLDL Cholesterol 14 mg/dL 0-50 HDL Risk Factor 4.5 CALC High 0.0-4.4 Comprehensive Metabolic 09/25/2013 [facility] Kenia(fma) Sodium 138 mEq/L 134-149 Prof Potassium 4.2 mEq/L 3.6-5.5 Chloride 103 mEq/L 94-112 Carbon Dioxide 26 mEq/L 21-32 Glucose 115 mg/dL High 70-105 6 BUN 23 mg/dL 6-26 Creatinine 1.2 mg/dL 0.6-1.4 BUN/Creat Ratio 19.2 CALC 8.0-36.0 Calcium 9.8 mg/dL 8.6-10.2 Total Protein 6.9 g/dL 6.3-8.1 Albumin 4.7 g/dL 3.8-5.5 Globulin 2.0 g/dL 2.0-4.8 A/G Ratio 2.1 CALC 0.6-2.3 Alk. Phosphatase 72 U/L 22-95 Alt (SGPT) 20 U/L 10-40 Ast (Sgot) 15 U/L 5-34 Total Bilirubin 1.3 mg/dL 0.2-1.3 Lipid Profile 04/22/2013 [facility] Kenia(fma) Cholesterol 222 mg/dL High 120-200 HDL 44 mg/dL 30-70 Triglycerides 121 mg/dL 30-200 HDL Risk Factor 5.1 CALC High 0.0-4.4 LDL (Calculated) 154 CALC High 0-129 VLDL (Calculated) 24 mg/dL 0-50 Basic Metabolic Profile 04/22/2013 Osito Aquino([facility]) BUN 27 mg/dL High 6-26 7 Calcium 9.2 mg/dL 8.6-10.2 Chloride 102 mEq/L 94-112 Creatinine 1.3 mg/dL 0.6-1.4 Carbon Dioxide 25 mEq/L 21-32 Glucose 121 mg/dL High 70-105 8 Sodium 142 mEq/L 134-149 Potassium 5.0 mEq/L 3.6-5.5 BUN/Creat Ratio 20.8 Calc 8.0-36.0 Laboratory test 04/22/2013 [facility] C Reactive < 0.5 mg/dL Less than 9 finding Protein 0.5 Laboratory test 04/22/2013 [facility] Hemoglobin A1c 5.9% % High 4.1 -5.7 finding (607)- - (a/CMC,CX) Laboratory test 12/25/2012 [facility] C-Reactive 58.7 mg/L High 0.0-5.0 10 finding 28 [facility] Protein [place], [place] [id number] [phone] [facility] Western 12/25/2012 [facility] IgG P93 Ab. Absent Blot Ser 28 [place] [address] [phone] IgG P66 Ab. Absent IgG P58 Ab. Absent IgG P45 Ab. Absent IgG P41 Ab. Absent IgG P39 Ab. Absent IgG P30 Ab. Absent IgG P28 Ab. Absent IgG P23 Ab. Absent IgG P18 Ab. Absent Lyme IgG WB Interp. Negative 11 IgM P41 Ab. Absent IgM P39 Ab. Absent IgM P23 Ab. Absent Lyme IgM WB Interp. Negative 12 CBC Electronic ([facility]) 12/25/2012 [facility] WBC 8.3 3.6-9.6 (607)- - RBC 5.41 3.90-5.70 Hemoglobin (Fma/CMC/CTX) 15.9 g/dL 12.1 - 17.2 Hematocrit (a/CMC/CTX) 48.0 % 36.1 - 50.3 Platelets 226 10^3/ul 150-400 Lymph% 17.1 Low 20.5-51.1 Mixed% 4.8 Neutrophils % 78.1 Mean Corpuscular Vol 89 82.2-97.4 Mean Corpuscular Hemoglobin 29.4 27.6-33.3 Mean Corpuscular Hemo Concen 33.1 32.0-36.0 RDW 13.5 11.6-13.7 Mean Platelet Volume 8.1 6.5-11.0 Surgical Pathology 08/07/2012 [facility] S RUN DATE: 08/08/ <SEE NOTE> Laboratory test 07/26/2012 [facility](a) PSA 0.90 ng/mL 0.00-4. finding 00 Lipid Profile 07/26/2012 Os[facility] Kenia(fma) Cholesterol 224 mg/dL High 120-200 HDL 38 mg/dL 30-70 Triglycerides 171 mg/dL 30-200 HDL Risk Factor 5.9 CALC High 0.0-4.4 LDL (Calculated) 152 CALC High 0-129 VLDL (Calculated) 34 mg/dL 0-50 Comprehensive Metabolic 07/26/2012 [facility] Kenia(fma) Albumin 4.9 g/dL 3.8-5.5 Prof Alk. Phos. 68 U/L 22-95 Alt (SGPT) 23 U/L 10-40 Ast (Sgot) 16 U/L 5-34 BUN 25 mg/dL 6-26 Calcium 9.5 mg/dL 8.6-10.2 Chloride 100 mEq/L 94-112 Creatinine 1.2 mg/dL 0.6-1.4 Carbon Dioxide 29 mEq/L 21-32 Glucose 130 mg/dL High 70-105 14 Sodium 140 mEq/L 134-149 Total Bilirubin 0.7 mg/dL 0.2-1.3 Total Protein 7.3 g/dL 6.3-8.1 Potassium 4.2 mEq/L 3.6-5.5 Globulin 2.4 g/dL 2.0-4.8 A/G Ratio 2.1 Calc 0.6-2.3 BUN/Creat Ratio 20.4 Calc 8.0-36.0 Ua - Non Micro (Fma) 07/26/2012 [facility] Appearance clear (607)- - Color yellow Glucose, Urine (Fma/CMC/CTX) neg Bilirubin neg Ketones neg SP Grav >=1.030 Blood neg PH 5.5 Protein neg Urobil 0.2 Nitrite neg Leukocytes (Fma/CMC/[facility]) neg Laboratory test 07/26/2012 [facility] Hemoglobin A1c 6.0 % High 4.1- 5.7 finding (607)- - (Fma/CMC,CX) Laboratory test 02/27/2009 [facility] Serotonin, Serum 354 ng/mL High 21- 321 15 finding 28 [place] [address] [phone] Testosterone, Total 273.2 ng/dL 241.0-827.0 Ua - Non Micro (Fma) 02/27/2009 [facility] Appearance clear (607)- - Color yellow Glucose, Urine (Fma/CMC/CTX) - Bilirubin - Ketones - SP Grav >1.030 Blood - PH 5.5 Protein - Urobil 0.2 Nitrite - Leukocytes (Fma/CMC/[facility]) - Laboratory test 02/27/2009 [facility] Kenia(a) PSA 0.80 ng/mL 0.00-4.00 16 finding Lipid Profile 02/27/2009 [facility]ia(a) Cholesterol 168 mg/dL 120- 200 HDL 33 mg/dL 30-70 Triglycerides 122 mg/dL 30-200 HDL Risk Factor 5.1 CALC 4.2-7.0 LDL (Calculated) 110 CALC 0-129 VLDL (Calculated) 24 mg/dL 0-50 Comprehensive Metabolic 02/27/2009 [facility]ia(a) Albumin 4.3 g/dL 3.8-5.5 Prof Alk. Phos. 64 U/L 22-95 Alt (SGPT) 28 U/L 10-40 Ast (Sgot) 17 U/L 5-34 BUN 22 mg/dL 6-26 Calcium 8.6 mg/dL 8.6-10.2 Chloride 99 mEq/L 94-112 Creatinine 1.3 mg/dL 0.6-1.4 Carbon Dioxide 24 mEq/L 21-32 Glucose 108 mg/dL High 70-105 Sodium 139 mEq/L 134-149 Total Bilirubin 1.0 mg/dL 0.2-1.3 Total Protein 6.8 g/dL 6.3-8.1 Potassium 4.2 mEq/L 3.6-5.5 Globulin 2.5 g/dL 2.0-4.8 A/G Ratio 1.7 Calc 0.6-2.2 BUN/Creat Ratio 16.3 Calc 8.0-36.0 Lipid Profile 04/10/2007 Mcneill Kenia([facility]) Cholesterol 204 mg/dL High 120-200 HDL 36 mg/dL 30-70 Triglycerides 196 mg/dL 30-200 HDL Risk Factor 5.7 CALC 4.2-7.0 LDL (Calculated) 129 CALC 0-129 VLDL (Calculated) 39 mg/dL 0-50 [facility] Metabolic 04/10/2007 Mcneill Kenia([facility]) Albumin 4.4 g/dL 3.8-5.5 Prof Alk. Phos. 56 U/L 22-95 Alt (SGPT) 26 U/L 10-40 Ast (Sgot) 15 U/L 5-34 BUN 18 mg/dL 6-26 Calcium 9.3 mg/dL 8.6-10.2 Chloride 99 mEq/L 94-112 Creatinine 1.2 mg/dL 0.6-1.4 Carbon Dioxide 29 mEq/L 21-32 Glucose 103 mg/dL 70-105 Sodium 138 mEq/L 134-149 Total Bilirubin 0.9 mg/dL 0.2-1.3 Total Protein 7.4 g/dL 6.3-8.1 Potassium 4.4 mEq/L 3.6-5.5 Globulin 3.1 g/dL 2.0-4.8 A/G Ratio 1.4 Calc 0.6-2.2 BUN/Creat Ratio 15.2 Calc 8.0-36.0 [facility] Metabolic 09/22/2004 [facility] Glucose, Serum 101 mg/dL 70- 105 (a) Male (607)- - (Fma/CMC/CTX) BUN (Fma/CMC/[facility]) 25 mg/dL 6-26 Creatinine (Fma/CMC/CTX) 1.2 mg/dL 0.6-1.4 BUN/Creatinin Ratio 20.1 8.0-36 Sodium 143 134-149 Potassium 4.4 3.6-5.5 Chloride 100 mEq/L 94-112 Co2 27 21-32 Calcium (Fma/CMC/[facility]) 9.0 mg/dL 8.6-10.2 Total Protein 6.8 g/dL 6.3-8.1 Albumin (Fma/[facility]) 4.3 3.8-5.5 Globulin 2.5 2.0-4.8 A/G Ratio (a/CMC/[facility]) 1.7 0.6-2.2 Alk Phos (a) Male 71 U/L 22-95 Alt (SGPT) (a/[facility]) 24 7-35 Ast (Sgot) ([facility]) 17 U/mL 5-34 Total Bilirubin 1.5 RESULT HAN'D Lipid Profile(a) Male 09/22/2004 Family [facility] Cholesterol 191 mg/dL 120-200 (607)- - Triglyceride 93 mg/dL 30-200 HDL Cholesterol (a) Male 40 mg/dL 30-70 LDL, Calculated ([facility]) 132 CALC High 0-129 LDL, Direct - mg/dL 0-130 VLDL 19 0-50 HDL Risk Factor ([facility]) 4.7 CALC 4.2-7.0 Laboratory test 09/22/2004 [facility] Bilirubin, Direct 0.3 mg/dL 0 -0.6 finding (607)- - Bilirubin, Indirect 1.12 ml/dl High 0.10-1.0 Basic Metabolic ([facility]) 11/28/2003 [facility] Sodium 138 mmol/L 135-145 Potassium 4.4 mmol/L 3.5-5.0 Chloride 103 mmol/L 101-111 Co2 27.0 mmol/L 22-32 Anion Gap 8.0 mmol/L 2-11 Glucose, Serum (a/[facility]/CTX) 91 mg/dL 70-105 BUN ([facility]) 23 mg/dL 6-24 Creatinine ([facility]/CTX) 1.2 mg/dL 0.5-1.4 BUN/Creatinin Ratio 19.2 8-20 Calcium (a/[facility]) 9.8 mg/dL 8.7-10.2 Liver Function ([facility]) 11/28/2003 [facility] Total Protein 6.9 GM/DL 6.2-8.1 Albumin ([facility]) 4.2 3.6-5.4 Globulin 2.7 2-4 A/G Ratio (A/G Ratio) 1.6 1-3 Total Bilirubin 1.0 mg/dL 0.4-1.5 Bilirubin, Direct 0.2 mg/dL 0.1-0.5 Bilirubin, Indirect 0.8 mg/dL High 0.1-0.75 Alkaline Phosphatase (F/C/CTX) 75 U/L 39-117 Alt (SGPT) (Fma/CMC/[facility]) 37 17-63 Ast (Sgot) (a/CMC/[facility]) 22 12-42 Laboratory test finding 11/28/2003 [facility] TSH (a/CMC/[facility]) 1.04 0.34- 5.60 CBC Electronic ([facility]) 11/28/2003 [facility] WBC 7.3 CUMM 4.8-10.8 RBC 5.43 CUMM 4.6-6.2 Hemoglobin (Fma/CMC/CTX) 16.7 g/dL 14.0-18.0 Hematocrit (Fma/CMC/CTX) 49 % 42-52 Mean Corpuscular Vol 90 UM3 80-94 Mean Corpuscular Hemaglobin 31 pg 27-31 Mean Corpuscular Hemo Concen 34 g/dL 32-36 RDW 13 10.5-15 Platelets 255 CUMM 150-450 Mean Platelet Volume 11.0 High 7.4-10.4 Granulocytes 68.3 % 38-83 Lymphocytes 21.0 % 20-45 Monocytes 9.7 % High 1-9 Eosinophil 0.4 0-6 Basophil% 0.6 0-2 Abs Lymphs 1.5 1.0-4.8 Abs Mononuclear 0.7 0-0.8 Abs Grans 5.0 1.5-7.7 Abs Eosinophils 0 0-0.6 Abs Basophils 0 0-0.2 Laboratory test finding 11/28/2003 [facility] Monospot ([facility]) NEGATIVE Negative 1 consistent w/ previous results 2 FASTING 3 1 sst [id number] SEE RESULT BELOW Name: LIZA GARVIN : [address]: Cong Douglass MD Acct: [id number] Unit: [id number] AGE: 55 Location: ENDO Re11/17/15 SEX: M Status: REG REF SPEC: [id number] DEMOND: 11/17/1525 [facility] DR: Cong Douglass MD REQ: [id number] RECD: 11/17/15-1145 STATUS: STEPHANY DEL CID DR: Pito Arroyo MD _ ORDERED: LEVEL IV/2 FINAL DIAGNOSIS 1. Colon, midright, biopsy: -- Hyperplastic polyp. 2. Colon, cecum, biopsy: -- Tubular adenoma. -- No high grade dysplasia or malignancy. CLINICAL HISTORY ER-0, Dr. Arroyo - Fall 2014 nothing new, umbilical 10/15 POST-OPERATIVE DIAGNOSIS Colonoscopy to cecum, loopy, increased ? Conclusions/Plan: 1. Mild sigmoid diverticulosis, 2. Polyps. GROSS DESCRIPTION 1. The specimen is received in formalin labeled, Mid Right Colon Polyp, and consists of two carlson irregular soft tissue fragments measuring 0.2 x 0.2 x 0.1 cm and 0.4 x 0.3 x 0.1 cm, which are submitted entirely in one cassette. 2. The specimen is received in formalin labeled, Cecal Cap Polyp, and consists of two carlson-pink irregular soft tissue fragments measuring 0.3 x 0.2 x 0.1 cm and 0.5 x 0.3 x 0.2 cm, which are submitted entirely in one cassette. Signed (signature on file) Howard Lyman MD [id number] END OF REPORT * ML=Testing performed at Main Lab DEPARTMENT OF PATHOLOGY, [address] [place] [id number] Howard Lyman M.D. Director [facility] # [id number] 5 RESULTS VERIFIED BY REPEAT ANALYSIS 6 RESULTS VERIFIED BY REPEAT ANALYSIS 7 RESULT HAN'D 8 RESULT HAN'D 9 FASTING 10 2sst 11 Positive: 5 of the following Borrelia-specific bands: 18,23,28,30,39,41,45,58, 66, and 93. Negative: No bands or banding patterns which do not meet positive criteria. 12 Note: An equivocal or positive EIA result followed by a negative Western Blot result is considered NEGATIVE. An equivocal or positive EIA result followed by a positive Western Blot is considered POSITIVE by the CDC. Positive: 2 of the following bands: 23,39 or 41 Negative: No bands or banding patterns which do not meet positive criteria. Criteria for positivity are those recommended by CDC/ASTPHLD. p23=Osp C, n20=quhkeefcu Note: Sera from individuals with the following may cross react in the Lyme Western Blot assays: other spirochetal diseases (periodontal disease, leptospirosis, relapsing fever, yaws, and pinta); connective autoimmune (Rheumatoid Arthritis and Systemic Lupus Erythematosus and also individuals with Antinuclear Antibody); other infections (St. Benedict Spotted Fever; Aaliyah-Armstrong Virus, and Cytomegalovirus). 13 RUN DATE: 08/08/12 [facility] LAB LIVE PAGE 1 RUN TIME: [address] [place] [id number] Specimen Inquiry Name: LIZA GARVIN : [address]: Cong Douglass MD Acct: [id number] Unit: [id number] AGE: 52 Location: ENDO Re08/07/12 SEX: M Status: REG REF SPEC: [id number] DEMOND: 08/07/12- SUBM DR: Cong Douglass MD REQ: [id number] RECD: 08/07/12 STATUS: STEPHANY DEL CID DR: Pito Arroyo MD _ ORDERED: LEVEL IV/3 FINAL DIAGNOSIS 1) Colon, hepatic flexure, biopsy: A. Tubular adenoma. B. No high grade dysplasia or malignancy. 2) Colon, sigmoid polyp, biopsy: A. Tubular adenoma. B. No high grade dysplasia or malignancy. 3) Colon, 18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
[2018-09-26] MEDS ORDERED: Diltiazem IV push/loading dose 5 MG/ML 5 ML vial (25 mg) IV PUSH ONE (12:33)
[2018-09-26] MEDS ORDERED: NS 0.9% 1000 ML** 1,000 ML IV ONE ×2 (12:33→15:59)
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
[2018-09-26 12:44] LABS: Hematocrit 48 % (42-52); Hemoglobin 16.5 g/dL (14.0-18.0); Mean Corpuscular HGB Conc 34 g/dL (31-36); Mean Corpuscular Hemoglobin 30 pg (27-31); Mean Corpuscular Volume 88 fL (80-94); Mean Platelet Volume 10.2 fL (7.4-10.4); Platelet Count 271 10^3/uL (150-450); Red Blood Count 5.41 10^6 /uL (4.18-5.48); Red Cell Distribution Width 14 % (10.5-15); White Blood Count 8.4 10^3/uL (3.5-10.8)
[2018-09-26 13:06] LABS: Albumin 4.3 g/dL (3.2-5.2); Albumin/Globulin Ratio 1.5 (1-3); BUN/Creatinine Ratio 23.7 (8-20); EGFR African American 101.3 (>60); EGFR Non-African American 83.7 (>60); Globulin 2.9 g/dL (2-4); Magnesium 2.3 mg/dL (1.9-2.7); Potassium 4.3 mmol/L (3.5-5.0); Total Bilirubin 0.9 mg/dL (0.2-1.0); Total Protein 7.2 g/dL (6.4-8.9)
[2018-09-26 13:09] LABS: Troponin I 0.01 ng/mL (<0.04)
[2018-09-26 13:32] LABS: TSH (Thyroid Stimulating Horm) 1.07 mcIU/mL (0.34-5.60)
[2018-09-26 13:43] LABS: ABS Basophils 0.1 10^3/ul (0-0.2); ABS Eosinophils 0.2 10^3/ul (0-0.6); ABS Monocytes 0.8 10^3/ul (0-0.8); ABS Neutrophils 5.4 10^3/ul (1.5-7.7); Eosinophil % 2.3 %; Large Platelets Present; Lymphocyte % 23.8 %
[2018-09-26] MEDS ORDERED: Diltiazem IV VIAL* 125 MG in NS 0.9% 100 ML* 100 ML IVPB ONE ×2 (13:45→16:14)
[2018-09-26] MEDS ORDERED: NS 0.9% 100 ML* 100 ML ONE (14:02)
[2018-09-26] MEDS ORDERED: Metoprolol Tartrate IV* 1 MG/ML 5 ML VIAL IV PRN ×2 (15:30→16:17)
[2018-09-26] MEDS ORDERED: Acetaminophen TAB* 325 MG PO PRN (16:12)
[2018-09-26] MEDS ORDERED: Ondansetron INJ* 2 MG/ML VIAL IV PRN (16:12)
[2018-09-26] MEDS: Heparin VIAL(*) 5000 UNITS/ML VIAL (FIVE THOUSAND) IV SCH ×2 (16:22→22:29)
[2018-09-26] MEDS: Heparin DRIP 25,000 UNITS(*) 25,000 UNITS/500 ML BAG IV SCH (16:25)
--- NOTE | 2018-09-26 17:34 | HP ---
HISTORY AND PHYSICAL: DATE OF ADMISSION: PRIMARY CARE PROVIDER: Dr. Pito Arroyo. CLAM SHOVEL OPERATOR: Kelle Tanner, the patient's . CODE STATUS: Full. REASON FOR ADMISSION: Palpitations. SOURCE OF INFORMATION: HPI is obtained from the patient. He is an excellent historian. HISTORY OF PRESENT ILLNESS: This is a 58-year-old healthy man with a past medical history of one time provoked massive PE in 2017 after a right ORIF. He was on anticoagulation for 7 months and then discontinued. He is presenting today with complaints of symptomatic palpitations and shortness of breath, starting 3 days ago. The patient says he was working on the yard and drinking lots of caffeinated ice tea when he started having sensation of palpitations and like he could not catch his breath fully. He was able to rest and recover, but has had these intermittent sensations of fluttering and palpitations over the past 3 days and finally he decided to come to the emergency room to get it looked up because it felt similar to the last time he had a pulmonary embolism. He denies any saulo shortness of breath or chest pain or pressure. He denies any orthopnea or increase in fluids. He has no recent travel or surgeries and he does not have a family history of blood clots. His past medical history is really only significant for as above and he has a possible slightly enlarged abdominal aortic aneurysm that is being surveyed by his primary care provider. No other positive review of systems as per below. In the emergency room, the patient was tachycardic and atrial fibrillation to the 140s with stable blood pressure, afebrile, satting 97% on room air with a respiratory rate of 27. His labs are significant for a flat troponin, normal CBC and BMP. A chest x-ray was done, which was unremarkable. An EKG was done that showed atrial fibrillation with rate to the 130s and no active signs of ischemia, prior EKG with some LVH. The hospitalist team was asked to admit this patient for further rate control. The patient was given diltiazem 20 mg IV x1 with no improvement and then placed on diltiazem drip at a rate of 10 mg per hour. He also received 1 L of normal saline. PAST MEDICAL HISTORY: Provoked pulmonary embolism, massive, receiving tPA in 2017 in the setting of right ORIF after right leg fracture and possibly enlarged abdominal aortic aneurysm, on surveillance. PAST SURGICAL HISTORY: Status post right ORIF in 2017. MEDICATIONS: He takes none. ALLERGIES: He has no known drug allergies. FAMILY HISTORY: His mother has diabetes and father has also AAA. SOCIAL HISTORY: The patient lives at home with his . 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 Alcohol: He is a social drinker with 3 drinks per week. Tobacco: He is a lifetime nonuser. Illicits: Lifetime nonuser. REVIEW OF SYSTEMS: Constitutionally, he denies fevers, chills, malaise. HEENT : Denies headaches or vision changes. Cardiovascular: Denies chest pain. Does endorse palpitations. No orthopnea. Respiratory: Denies saulo shortness of breath, cough, or pleuritic chest pain. GI: Negative for nausea, vomiting, diarrhea, or constipation. : Negative for dysuria or hematuria. Musculoskeletal: Negative for myalgias, arthralgias, or weakness. Skin: Negative for rashes or lesions. Neurologic: Negative for focal weakness or numbness. Psychiatric: Negative for depression or anxiety. Endocrine: Negative for polyuria or polydipsia. Heme: Negative for easy bruising, bleeding, or lymphadenopathy. Allergy: Negative for frequent infections. PHYSICAL EXAMINATION GENERAL: This is a very pleasant well-appearing gentleman, in no acute distress , sitting up in stretcher. VITAL SIGNS: At the time of physical exam, heart rate is atrial fibrillation in the rate of 120s, blood pressure is 126/70, temperature is 97.7, respiratory rate is 15, and satting 95% on room air. HEENT: His pupils are equal and reactive. Sclerae anicteric. Extraocular muscles are intact and mucous membranes are moist. NECK: Supple with no supraclavicular or cervical lymphadenopathy. RESPIRATORY: His lungs are clear to auscultation bilaterally. CARDIAC: He has an irregularly irregular rhythm with no murmurs, rubs, or gallops and no evidence of JVP. GI: Soft, nontender, nondistended with normoactive bowel sounds. MUSCULOSKELETAL: He moves all 4 limbs spontaneously. EXTREMITIES: He does have right lower extremity with 2+ nonpitting edema and no tenderness to palpation of the calf. Left lower extremity unremarkable. He has 2+ palpable pulses in bilateral DPs. NEUROLOGIC: His cranial nerves II through XII are intact with no focal neurologic deficits. He is A and O x3. LABS AND STUDIES: White blood cell count 8.4, hemoglobin 16, hematocrit 48, and platelets 271. Sodium is 140, potassium 4.3, chloride 110, carbon dioxide 23, BUN 22, creatinine 0.9, glucose 113. AST 17, ALT 19, alk phos 65, total CK is 246 and troponin is 0.01. BNP mildly elevated at 412 and TSH is 1.07. Chest x-ray was done, which shows no active cardiopulmonary disease. EKG was done that shows atrial fibrillation with rapid ventricular response and no evidence of acute ischemia. Imaging, labs, and EKG reviewed by myself. ASSESSMENT AND PLAN: This is a 58-year-old male with no significant past medical history aside from a provoked pulmonary embolism in 2017, on anticoagulation for 7 months and then discontinued, who is presenting for 3 days of palpitations and found to be in new-onset atrial fibrillation with rapid ventricular response. Several possible provoking factors for this new atrial fibrillation, untreated hypertension (mild), possible MANDO. The patient did have excess caffeine intake. His thyroid is normal. He does have a history of pulmonary embolism and mildly elevated size of right lower extremity , possible DVT which will be ruled out with Dopplers. 1. Atrial fibrillation. The patient's CHADS-VASc is 0. He is currently on a diltiazem drip for rate control at 10 mg per hour and we may increase this to 15 mg per hour. Furthermore, for persistent tachycardia greater than 130, we will start metoprolol 25 mg PO q.8 hours. Cardiology was consulted, who requested that the patient be placed on a heparin drip for possible cardioversion and the patient will be placed n.p.o. at midnight in the event he does not spontaneously convert. We will admit the patient to telemetry floor and monitor on tele. -For workup will also order overnight oximetry -Watch bloodpressure, likely HTN and will need to be d/c on new anti-HTN 2. Distant history of pulmonary embolism. He has no new provocating factors. We will do bilateral lower extremity Dopplers to look for any recurrent DVT, if this is a possible routine clot that acts as a provocating factor for the atrial fibrillation. 3. DVT prophylaxis: The patient is on a heparin drip. 4. Code status is full. 5. FEN: The patient will be placed on unrestricted diet and n.p.o. after midnight in the event he does not spontaneously cardiovert and needs cardioversion. 6. Disposition: The patient is stable for admission to the medical floor on telemetry. TIME SPENT: Thirty five minutes was spent in the planning of this admission with over half of that spent directly at the bedside with the patient providing direct patient care. Plan of care was discussed with the patient and family, and they have no further questions. [id number]/[facility] #: [id number] MAGDIEL
--- NOTE | 2018-09-26 19:38 | PN ---
Progress Note - Progress Note Date of Service: 09/26/18 Note: RN called - Patient remains in Afib but now rate controlled in 70-80's. Will d/ c diltiazem drip and continue metroprolol
[2018-09-26] MEDS: Metoprolol Tartrate TAB* 25 MG PO SCH (20:23)
[2018-09-26 21:21] LABS: Urine Appearance Clear; Urine Bilirubin Negative (Negative); Urine Blood Negative (Negative); Urine Color Yellow; Urine Glucose Negative (Negative); Urine Ketones Negative (Negative); Urine Nitrite Negative (Negative); Urine Protein Negative (Negative); Urine Specific Gravity 1.023 (1.010-1.030); Urine Urobilinogen Negative (Negative)
--- NOTE | 2018-09-26 22:57 | CONS ---
CC: Hospitalist service; Dr. Pito Arroyo CARDIOLOGY CONSULTATION: DATE OF CONSULT: 09/26/18 REASON FOR CONSULTATION: Atrial fibrillation. CHIEF COMPLAINT: Some shortness of breath and palpitations. HISTORY OF PRESENT ILLNESS: Mr. Tanner is a 58-year-old gentleman with no prior cardiac history who awoke Monday morning, about 2-1/2 days ago, aware of some palpitations and exercise intolerance due to being a bit winded. This has persisted and he presented to the emergency room today. He had a large pulmonary embolism in 2017 following right-sided orthopedic surgery (fracture leg) and he was worried that these symptoms were similar. In the emergency room, he was found to be in atrial fibrillation with a rapid ventricular rate. At the time I saw him, he was on a diltiazem drip and rate control was improved. The patient states on the Monday the night before the procedure, he had a lot of ice tea and a small amount of alcohol. His and ex- were present and both say that he snores significantly and his current describes apnea episodes. The patient denies any change in his baseline swelling of the leg that he had had the pulmonary embolism in before. He denies any recent travel or any changes in medication. PAST MEDICAL HISTORY: 1. Pulmonary embolism, massive, requiring TPA in 2017. 2. Right ORIF following a leg fracture. 3. On surveillance for abdominal aortic aneurysm. PAST SURGICAL HISTORY: Right ORIF in 2017. MEDICATIONS: No outpatient medications. ALLERGIES: He has no known drug allergies. FAMILY HISTORY: Significant that his father of an abdominal aortic aneurysm in his 70s. His mother has a history of diabetes. 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 Occasional alcoholic beverages. He has never smoked. Lives with his . REVIEW OF SYSTEMS: See history of present illness, but no recent fevers, chills , sweats. No change in bowel or bladder habits. He does drink a lot of caffeine in the form of ice tea. Positive for snoring and apnea-like episodes according to his family. Chronic edema of the right lower extremity, unchanged from baseline. All other 14-point review of systems were negative. PHYSICAL EXAM: On exam, the patient is 6 feet 2 inches, weighs 229 pounds with a BMI of 29. Vitals: In the emergency room when I saw him, the patient's blood pressure was 146/103, he was in atrial fibrillation with rates at low 100s to 150s, oxygen saturation 96% on room air, respiratory rate was 20 to 25. General Appearance: Tall, but also stocky and overweight, somewhat older gentleman, lying at 30 degrees, appearing comfortable, in no acute distress. Psychologically, pleasant and cooperative. Neurologically, awake, alert, oriented to person; place; and time. Grossly normal sensory and motor function in the upper and lower extremities. Gait not checked. Skin: Warm, dry, free of cyanosis or rashes. Incisions from his leg surgery were old and well healed. HEENT: Mucous membranes are moist. Neck: Without increased JVP. Neck is thick, but no appreciable increase in JVP. Good carotid pulses. No thyromegaly and no bruits. Respiratory: Breath sounds are quite distant throughout, but clear. No wheezing, rales, or rhonchi. Coronary: S1, S2, irregularly irregular. I did not appreciate murmurs or extra heart sounds. Abdomen: Overweight, but active bowel sounds. Soft, nontender. No appreciable hepatomegaly or masses. Lower Extremities: The right lower extremity is larger in size than the left. Scars noted. No pitting. Dorsalis pedis pulses are 1 to 2+. DIAGNOSTIC STUDIES/LABORATORY DATA: Studies: The patient's ECG from 09/26/18 at 12:20 in the afternoon shows a rather regular tachycardia at a rate of 146 beats a minute. Repeat echo at 13:25 consistent with AFib with irregularly irregular rhythm at a rate of 133 beats a minute, QRS axis of 0, normal intraventricular conduction times, nonspecific ST-T waves. When compared with his prior EKG of 10/10/16, the AFib and tachycardia replace normal sinus rhythm. Labs: White count 8.4, hematocrit 48, platelets 271. PTT 29. Sodium 140, potassium 4.3, chloride 110, bicarb 23, glucose 113, BUN 22, creatinine 0.93, magnesium 2.3. AST 17, ALT 19. CPK 246, MB fraction 5, troponin 0.01, BNP of 412. TSH 1.07. Echocardiogram from 10/09/16 (in the setting of his pulmonary embolus) showed mild left ventricular hypertrophy with an ejection fraction of 50% to 55%, septal flattening, and right ventricular systolic function was moderately reduced and the right ventricle is moderately dilated. Valve function was overall good, he had aortic valve sclerosis, trace to mild aortic insufficiency , and mild tricuspid insufficiency. CXR 09/26/18: NAD. US aorta 2012: no AAA. Venous Doppler LE 09/26/18: No DVT, + thrombus in the RIGHT LE peroneal vein. IMPRESSION: In summary, Mr. Tanner is a 58-year-old gentleman who presents with a 2- to 3-day history of awareness of palpitations, some dyspnea, and orthostatic dizziness and chest heaviness and found in atrial fibrillation probably for the last 2 to 3 days, but of uncertain duration. Risks for the patient developing atrial fibrillation include age, body mass index that is elevated, and probable sleep apnea. Also possible that his prior pulmonary embolus has led to right ventricular abnormalities that could predispose him to this and his caffeine and alcohol intake could have contributed. He has been started on heparin drip for anticoagulation, which I agree with and he should continue on oral anticoagulation for a minimum of 3 months. We will recommend he undergo DEB-guided cardioversion in the morning. Lifestyle improvements for diagnosis in a man with sleep apnea could help and he may need beta-mamie antiarrhythmic to ultimately help him maintain normal sinus rhythm. Mr. Tanner should have serial troponins and ultimately will need a nonurgent stress test to help assist in decision making for antiarrhythmics. It is possible he has had uncontrolled hypertension. For now, we are going to rate control him with a combination of calcium channel blockers and beta blockers and this may be enough initially to control his rhythm and rate. Further recommendations will be made pending his clinical course and response to the above management. [id number]/[facility] #: [id number] [facility] HOSPITALMary Jo
[2018-09-27] MEDS: Metoprolol Tartrate TAB* 25 MG PO SCH ×3 (03:53→19:37)
[2018-09-27] MEDS: Metoprolol Tartrate IV* 1 MG/ML 5 ML VIAL IV PRN ×2 (04:52→09:51)
[2018-09-27 06:51] LABS: BUN/Creatinine Ratio 17.8 (8-20); Calcium 8.9 mg/dL (8.6-10.3); EGFR African American 92.1 (>60); EGFR Non-African American 76.1 (>60)
[2018-09-27] MEDS: Heparin DRIP 25,000 UNITS(*) 25,000 UNITS/500 ML BAG IV SCH (09:19)
[2018-09-27] MEDS ORDERED: Flumazenil* 0.1 MG/ML 5 ML MDV ONE (12:39)
[2018-09-27] MEDS ORDERED: Lidocaine 2% VISCOUS* 15 ML UDC ONE (12:39)
[2018-09-27] MEDS ORDERED: Naloxone* 0.4 MG/ML 1 ML VIAL ONE (12:39)
[2018-09-27] MEDS ORDERED: fentaNYL* 50 MCG/ML 2 ML VIAL (100 MCG VIAL) ONE (12:39)
[2018-09-27] MEDS ORDERED: Midazolam* 1 MG/ML 5 ML VIAL (5 MG) ONE (12:39)
--- NOTE | 2018-09-27 13:42 | PN ---
Subjective Date of Service: 09/27/18 Interval History: Mr. Tanner is feeling much better today. I saw him after his cardioversion, so he is still feeling a bit drowsy. He felt some SOB overnight, but none this morning. No CP, N/V, dizziness. He is agreeable to anticoagulation. Nursing reported tachycardia this morning. Family History: Unchanged from Admission Social History: Unchanged from Admission Past Medical History: Unchanged from Admission Objective Active Medications: Acetaminophen (Tylenol Tab*) 650 mg PO Q6H PRN FEVER/PAIN Heparin Sodium (Porcine) (Heparin Vial(*)) 0 units IV .PER PROTOCOL ELAINE Heparin Sodium/Dextrose (Heparin Drip 25,000 Units(*)) 25,000 units in 500 mls @ 0 mls/hr IV PER RATE ELAINE; Protocol Metoprolol Tartrate (Lopressor Tab*) 25 mg PO Q8H ELAINE Metoprolol Tartrate (Lopressor Iv*) 5 mg IV Q6H PRN pulse Ondansetron HCl (Zofran Inj*) 4 mg IV Q6H PRN NAUSEA Vital Signs - 8 hr 09/27/18 09/27/18 09/27/18 06:10 06:34 06:40 Temperature Respiratory 18 Rate Blood Pressure 123/89 131/90 (mmHg) O2 Sat by Pulse Oximetry 09/27/18 09/27/18 09/27/18 07:10 07:41 08:10 Temperature Respiratory Rate Blood Pressure 149/130 127/74 133/87 (mmHg) O2 Sat by Pulse Oximetry 09/27/18 09/27/18 09/27/18 08:40 09:13 09:40 Temperature Respiratory Rate Blood Pressure 115/92 112/95 112/83 (mmHg) O2 Sat by Pulse Oximetry 09/27/18 09/27/18 09/27/18 10:10 10:40 11:10 Temperature Respiratory Rate Blood Pressure 127/75 137/79 130/82 (mmHg) O2 Sat by Pulse Oximetry 09/27/18 09/27/18 09/27/18 11:41 12:10 12:14 Temperature 97.8 F Respiratory Rate Blood Pressure 137/88 125/84 (mmHg) O2 Sat by Pulse 97 Oximetry Oxygen Devices in Use Now: None Appearance: Middle-aged male laying in bed in NAD Eyes: No Scleral Icterus Ears/Nose/Mouth/Throat: Mucous Membranes Moist Neck: NL Appearance and Movements; NL JVP, Trachea Midline Respiratory: Symmetrical Chest Expansion and Respiratory Effort, Clear to Auscultation Cardiovascular: NL Sounds; No Murmurs; No JVD, RRR Abdominal: NL Sounds; No Tenderness; No Distention Extremities: No Edema Skin: No Rash or Ulcers Neurological: Alert and Oriented x 3 Lines/Tubes/Other Access: Clean, Dry and Intact Peripheral IV Result Diagrams: 09/26/18 12:33 09/27/18 05:50 Assess/Plan/Problems-Billing Assessment: Mr. Tanner is a 58 yo M with PMH of provoked PE in 2017 s/p hip ORIF, not on anticoagulation, and AAA; who presented to the ED with c/o palpitations and was found to be in new onset afib with RVR. - Patient Problems (1) Atrial fibrillation with RVR Code(s): I48.91 - UNSPECIFIED ATRIAL FIBRILLATION Comment: - Presented with 3 days of palpitations and SOB - HR up to the 130s, controlled after initiation of diltiazem drip - Appreciate Cardiology consult; cardioversion today, now in NSR - Echo unremarkable for significant findings, EF unknown - He was on Xarelto in the past after PE and wants to resume this - Continue metoprolol but switch to succinate in the AM; stop heparin drip and start Xarelto (2) DVT prophylaxis Code(s): Z29.9 - ENCOUNTER FOR PROPHYLACTIC MEASURES, UNSPECIFIED Comment: - Heparin gtt/Xarelto (3) Full code status Code(s): Z78.9 - OTHER SPECIFIED HEALTH STATUS Comment: Status and Disposition: Inpatient. Anticipate d/c home when medically stable, likely tomorrow. Attending: Devaughn Garcia
--- NOTE | 2018-09-27 13:52 | TEE ---
*[facility]* [place] [address] Fax #: [phone] Transesophageal Echocardiogram Patient: Ciro, Height: 74 in / 188 Redd Lozano cm : 1960 Weight: 229.5 lb / Study Date: 09/27/2018 104.3 kg Age: 58 BP: 132 / 94 Gender: M BMI/BSA: 29.5 kg/m^2 HR: 114 bpm / 2.31 m^2 *Back Up Worker: * Kelle Rojo [facility] *Referring Physician: * Argenis Jensen MD *Reading Physician: * Jacquelin Tee MD Indications: Atrial Fibrillation. History: Pulmonary embolism. Conclusions Summary: 1. Left ventricle: Unabbl eto determine ejection fraction due to Afib and tachycardia. The cavity size is normal. Wall thickness is mildly increased. Left ventricular diastolic function parameters are indeterminate. 2. Left atrium: The atrium is mildly dilated. There is no evidence of a thrombus in the atrial cavity or appendage. Spontaneous echo contrast cannot be excluded. 3. Atrial septum: A PFO is not demonstrated by color Doppler or agitated saline contrast. 4. Mitral valve: There is mild regurgitation. 5. Aortic valve: There is mild regurgitation. 6. Tricuspid valve: There is mild regurgitation. 7. Pulmonic valve: There is mild regurgitation. 8. Aorta: There is plaque visualized in the Transverse Aorta. Study data: Diagnostic Transesophageal Echocardiogram Consent: The risks and benefits of the procedure, including alternatives were discussed with the patient and/or their health care healthcare representative and written informed consent was obtained. Procedure: Initial setup: The patient was brought to the laboratory in the fasting state.Intravenous access was obtained. Surface ECG leads, heart rate, heart rhythm, blood pressure measurements, pulse oximetric signals, and mainstream end-tidal CO2 tracings were monitored throughout the procedure. Sedation. Moderate sedation was administered by nursing staff. History and physical as well as labs were reviewed. An oral bite block was inserted for protection of oral dentition. The patient was placed in the left lateral decubitus position. Topical anesthesia was obtained using viscous lidocaine. A transesophageal probe was inserted by the attending etcher photoengraving. Transesophageal echocardiography was performed, image quality was good, and all standard views were attempted within the limitations of patient tolerance and safety. Multiple 2D, color flow Doppler and spectral Doppler images were obtained. The transesophageal probe was removed. A bubble study was performed. Images 35 and 36. Location: Procedure room. Patient status: Inpatient. Patient room number: 445 02. Study completion: The patient tolerated the procedure well. There were no complications. Administered medications: Midazolam, 4mg. Fentanyl, 50mcg. Findings Left ventricle: Unabbl eto determine ejection fraction due to Afib and tachycardia. The cavity size is normal. Wall thickness is mildly increased. Left ventricular diastolic function parameters are indeterminate. Right ventricle: The cavity size is normal. Systolic function is normal. Left atrium: The atrium is mildly dilated. The appendage is of normal size. There is no evidence of a thrombus in the atrial cavity or appendage. Spontaneous echo contrast cannot be excluded. Right atrium: The atrium is normal in size. Atrial septum: There is increased thickness of the septum, consistent with lipomatous hypertrophy. A PFO is not demonstrated by color Doppler or agitated saline contrast. Mitral valve: The leaflets are normal thickness. There is no evidence of stenosis. There is mild regurgitation. Aortic valve: The valve is trileaflet. The leaflets are normal thickness. There is no evidence of stenosis. There is mild regurgitation. Tricuspid valve: The leaflets are normal thickness. There is no evidence of stenosis. There is mild regurgitation. Pulmonic valve: The leaflets are normal thickness. There is no evidence of stenosis. There is mild regurgitation. Aorta: There is plaque visualized in the Transverse Aorta. Aortic root: The aortic root is appears normal. Pericardium: There is no significant pericardial effusion. Pulmonary arteries: The main pulmonary artery is normal-sized. Systemic veins: Inferior vena cava: The vessel is normal in size. Pulmonary veins: The Pulmonary veins appear normal. Measurements Aortic valve Value Ref Aortic root Value Ref Emma diam, ED 2.1 cm ---- Root diam 3.9 cm <4.4 Mitral valve Value Ref Ascending aorta Value Ref Peak E 0.62 m/sec ---- AAo AP diam, S 3.5 cm ---- Peak A 0.02 m/sec ---- Decel time 42 ms ---- Peak E/A ratio 29.7 ---- Legend: (L) and (H) deann values outside specified reference range. Prepared and electronically signed by Jacquelin Tee MD 09/27/2018 13:52
--- NOTE | 2018-09-27 16:14 | CARD ---
CC: Dr. Jensen; Hospitalist Service, Dr. Tee DIRECT CURRENT CARDIOVERSION GUIDED BY TRANSESOPHAGEAL ECHOCARDIOGRAM NOTE: DATE OF PROCEDURE: 09/27/18. PROCEDURE: Direct current cardioversion for atrial fibrillation. INDICATIONS: The patient is a 58-year-old male patient, was admitted with rapid atrial flutter/fibri llation since Monday. He was started on IV heparin. A transesophageal echocardiography guided cardi oversion was further requested. Please refer to a full separate report of the transesophageal echocardiography that was done today an d in summary showed no evidence of clots or thrombus in the left atrium or in the left atrial appenda ge and no significant valvular disease. DESCRIPTION OF PROCEDURE: After informed written consent had been obtained and with continuous blood pressure, pulse oximetry, and heart rate monitoring, the patient had initially 4 mg intravenously of Versed and 50 mcg intravenously of fentanyl during the transesophageal echocardiogram. An additiona l 2 mg intravenously of Versed and 25 mcg intravenously of fentanyl was used for the purpose of direc t current cardioversion. A synchronized 150 joules was delivered once and successfully converted the patient to normal sinus rhythm. There were no complications and the patient tolerated the procedure very well. An immediate EKG obtained after and confirmed the patient to be in normal sinus rhythm w ith a heart rate 70 beats per minute. CONCLUSION: Successful direct current cardioversion for atrial fibrillation. There were no complicat ions. The patient is currently in normal sinus rhythm. [id number]/[facility] #: [id number]
[2018-09-27] MEDS ORDERED: Rivaroxaban TAB(*) 20 MG TAB PO SCH (18:00)
[2018-09-28] MEDS: Metoprolol Tartrate TAB* 25 MG PO SCH (03:51)
[2018-09-28 08:12] VITALS: BP 119/77
[2018-09-28] MEDS ORDERED: Metoprolol Succinate XL TAB* 50 MG PO SCH (09:00)
--- NOTE | 2018-09-28 15:09 | DS ---
CC: Dr. Pito Arroyo; Dr. Roshan Tee; Dr. Argenis Jensen* DISCHARGE SUMMARY: DATE OF ADMISSION: 09/26/18 DATE OF DISCHARGE: 09/28/18 PRIMARY CARE PROVIDER: Dr. Pito Arroyo. ATTENDING PHYSICIAN: Dr. Devaughn Garcia* (dictated by Magali Jacques NP) PRIMARY DIAGNOSES: 1. New onset atrial fibrillation with rapid ventricular response. 2. Right lower extremity deep vein thrombosis. SECONDARY DIAGNOSES: 1. History of provoked pulmonary embolism. 2. Abdominal aortic aneurysm. STUDIES WHILE IN THE HOSPITAL: 1. EKG on 09/26/18 shows atrial fibrillation with a rate of 146, QTc 468, inverted T waves in lead III. 2. Chest x-ray on 09/26/18 reads as no radiographic evidence for acute cardiopulmonary abnormality. 3. EKG on 09/26/18 shows atrial fibrillation with a rate of 133, QTc 494, inverted T waves in lead III. 4. Bilateral lower extremity venous Doppler study on 09/26/18 reads as heterogenic material in the posterior tibial veins on the right suggestive of pressure thrombus. One of the paired peroneal veins is thrombosed on the right lower extremity. The left lower extremity demonstrates no evidence of deep vein thrombosis. 5. Transesophageal echocardiogram on 09/27/18 reads as unable to determine ejection fraction due to AFib and tachycardia. The left ventricular cavity size is normal. Wall thickness is mildly increased. Left ventricular diastolic function parameters are indeterminate. The left atrium is mildly dilated. There is no evidence of a thrombus in the atrial cavity or appendage. Spontaneous echo contrast cannot be excluded. A PFO was not demonstrated by color Doppler or agitated saline contrast. There is mild mitral regurgitation. There is mild aortic regurgitation. There is mild tricuspid regurgitation. There is mild pulmonic regurgitation. There is plaque visualized in the transverse aorta. 6. EKG on 09/27/18 shows sinus bradycardia with the rate of 58, QTc 392, inverted T waves in lead III. CONSULTATIONS WHILE IN THE HOSPITAL: 1. Dr. Jensen with Cardiology. 2. Dr. Tee with Cardiology. HISTORY OF PRESENT ILLNESS AND HOSPITAL COURSE: Mr. Tanner is a 58-year-old male with past medical history of a provoked PE in 2017, no longer on anticoagulation and a stable AAA, who presented to the emergency room on with complaints of palpitations. Please see the history and physical by Dr. Hwang for complete summary of the events leading up to this hospitalization. In short, the patient for the last 3 days was having sensations of palpitation and shortness of breath. He noted that these episodes were intermittent, although because they had been going on for 3 days, he was concerned and presented to the emergency room. In the emergency room, he was found to be in rapid AFib. The patient does not have a history of AFib. He had unremarkable lab work including flat troponins. He was admitted by the hospitalist service. The patient was started on a Cardizem drip for control of his rapid AFib. Rate control was obtained later that night and the patient was changed over to p.o. metoprolol. Cardiology was consulted. The patient was seen by Dr. Jensen. The patient had been started on a heparin drip for anticoagulation which Dr. Jensen recommended continuing, though she did note that the patient should be started on oral anticoagulation for minimum of 3 months. She did arrange for a DEB guided cardioversion for the following morning. The following day, on 09/27, the patient did undergo cardioversion with Dr. Tee which was successful in converting the patient back to normal sinus rhythm with rates in the 60s. He continued to be monitored on telemetry and had no further evidence of atrial fibrillation. I did speak with the patient about options for anticoagulation and he decided to pursue anticoagulation with Xarelto as he did take this in the past for his PE and tolerated the medication well. Xarelto was started on the evening of 09/27/18 and the heparin drip was discontinued at that point. The patient has been on metoprolol tartrate every 8 hours here in the hospital, though ultimately I did switch him to metoprolol succinate for a more convenient home dosing. As noted above, the patient is noted to have right lower extremity DVT. Ultrasound of the lower extremities was done on admission due to the concern for some mild edema in the right lower extremity. The patient reportedly denied any recent travel or surgeries and denied any history of blood clots in family members. I have ordered a hypercoagulability workup which is pending at this time and will need to be followed up with the patient's PCP as it sounds as though these DVTs may represent unprovoked DVTs. As of today, the patient reports feeling well. He offers no complaints and had an uneventful night. He is anxious to return home. On exam, he has no focal neurological deficits. Heart has a regular rate and rhythm without murmurs, rubs, or gallops. Lungs are clear to auscultation without rhonchi, wheezes, or rubs. There is no edema. Mr. Tanner is stable for discharge today. Vital signs are as follows: Temp 97.3 , heart rate 64, respiratory rate 16, oxygen saturation 95% on room air, blood pressure 119/77. DISCHARGE MEDICATIONS: New Medications: 1. Metoprolol succinate 50 mg p.o. daily. 2. Xarelto 20 mg p.o. daily. DISCHARGE PLAN: Mr. Tanner will be discharged home. Activity will be as tolerated. Diet will be regular as tolerated. Medications are noted above. The patient has been started on metoprolol for his atrial fibrillation. He also has been started on Xarelto for atrial fibrillation and DVT. He will need to follow up with his primary care provider in 4 to 7 days. Again, I have ordered a hypercoagulability workup which is pending at this time and will need to be followed up. It will need to be determined by his PCP and/or Cardiology the duration of anticoagulation or if this needs to be life long. He should follow up with Cardiology and I have advised him that he may followup with Dr. Tee or Dr. Jensen as he saw both of them while here in the hospital. The patient has been instructed to return to the hospital or nearest emergency room for any worsening of symptoms, shortness of breath, lightheadedness, dizziness, chest discomfort, high fevers, chills, night sweats, loss of consciousness, or any other worrisome signs or symptoms. DISCHARGE CONDITION: Stable. DISCHARGE DISPOSITION: Home. This is a summarized report of a complex medical history and hospital stay. For further details, please see the entire medical record. TIME SPENT: Approximately 60 minutes was spent on this discharge. MAGALI JACQUES, YOUTH ACCOMMODATION SUPPORT WORKER [id number]/[facility] #: [id number] MAGDIEL
== END 2018-09-28 09:19 | disposition home or self-care (01) | DRG 201 ==
LOC: ED 12:11 → MEDTELE 16:09
PROVIDERS: ADMIT Internal Medicine; ATTEND Internal Medicine
PROC: 5A2204Z Restoration of Cardiac Rhythm, Single (ICD-10-PCS; principal; 2018-09-26)
DX: I48.91 Unspecified atrial fibrillation (principal); I82.491 Acute embolism and thrombosis of other specified deep vein of right lower extremity; E66.3 Overweight; I71.4 Abdominal aortic aneurysm, without rupture; K44.9 Diaphragmatic hernia without obstruction or gangrene; N40.0 Benign prostatic hyperplasia without lower urinary tract symptoms; I10 Essential (primary) hypertension; I08.3 Combined rheumatic disorders of mitral, aortic and tricuspid valves; R00.1 Bradycardia, unspecified; Z86.711 Personal history of pulmonary embolism; Z82.49 Family history of ischemic heart disease and other diseases of the circulatory system; Z83.3 Family history of diabetes mellitus; Z72.89 Other problems related to lifestyle; Z68.29 Body mass index [BMI] 29.0-29.9, adult
CPT/HCPCS: 36415; 71045; 80048; 80053; 81003; 82550; 82553; 83605; 83735; 83880; 84443; 84484; 85025; 85730; 92960; 93005; 93312; 93325; 93970; 99156; 99157; 99284; A9270-GY; J1644; J2250; J2310; J3010; J3490

== ENCOUNTER 2019-06-24 07:40 | Day surgery (SDC) | payer BC ==
[~2019-06-24 07:40] MED LIST: Acetaminophen TAB* 325 MG PO ONE; Buffered Lidocaine 1% SYRIN* 1 ML/SYRINGE INTRADERM ONE; Famotidine IV* 10 MG/ML 2 ML (20 mg) IV ONE; Gabapentin CAP(*) 300 MG PO ONE; Lactated Ringers 1000 ML Bag* 1,000 ML IV SCH
[2019-06-24] MEDS ORDERED: ceFAZolin 2 GM in NS PREMIX(*) 2 GM/100 ML BAG IVPB ONE (08:13)
[2019-06-24] MEDS ORDERED: Acetaminophen TAB* 325 MG ONE (08:13)
[2019-06-24] MEDS ORDERED: Gabapentin CAP(*) 300 MG ONE (08:13)
[2019-06-24] MEDS ORDERED: Famotidine IV* 10 MG/ML 2 ML (20 mg) ONE (08:13)
[2019-06-24] MEDS ORDERED: Midazolam* 1 MG/ML 2 ML VIAL (2 MG) ONE (09:03)
[2019-06-24] MEDS ORDERED: fentaNYL* 50 MCG/ML 2 ML VIAL (100 MCG VIAL) ONE (09:03)
[2019-06-24] MEDS ORDERED: Lidocaine 1% MPF ** 5 ML VIAL ONE (09:41)
[2019-06-24] MEDS ORDERED: Bupivacaine 0.25% SDV* 30 ML ONE (09:41)
[2019-06-24] MEDS ORDERED: Dexamethasone IV* 4 MG/ML 5 ML VIAL (20 MG) ONE (09:54)
[2019-06-24] MEDS ORDERED: Ketorolac INJ* 30 MG/ML 1 ML VIAL ONE (10:04)
[2019-06-24] MEDS ORDERED: Lidocaine 2% PF * 5 ML VIAL ONE (10:04)
[2019-06-24] MEDS ORDERED: Ondansetron INJ* 2 MG/ML VIAL ONE (10:04)
[2019-06-24] MEDS ORDERED: Propofol* 10 MG/ML 20 ML BTL ONE (10:04)
[2019-06-24] MEDS ORDERED: Dexamethasone IV* 4 MG/ML 1 ML (4 MG) ONE (10:04)
[2019-06-24] MEDS ORDERED: fentaNYL* 50 MCG/ML 2 ML VIAL (100 MCG VIAL) IV PRN (10:07)
[2019-06-24] MEDS ORDERED: HYDROcodone/ACETAMIN 5-325 MG* 1 TAB PO PRN (10:07)
[2019-06-24] MEDS ORDERED: Ondansetron INJ* 2 MG/ML VIAL IV PRN (10:07)
[2019-06-24] MEDS ORDERED: Naloxone* 0.4 MG/ML 1 ML VIAL IV PRN (10:07)
[2019-06-24] MEDS ORDERED: diPHENhydraMINE IV* 50 MG/ML 1 ml VIAL (BENADRYL) IV PRN (10:07)
[2019-06-24] MEDS ORDERED: DiMENhydriNATE IV* 50 MG/ML VIAL IV PUSH PRN (10:07)
[2019-06-24 12:16] VITALS: BP 138/99
--- NOTE | 2019-06-25 02:21 | OP ---
DATE OF OPERATION: 06/24/19 [facility] DATE OF : 62. SURGEON: Devaughn Rubio MD. SUBCONTRACT ADMINISTRATOR: ELE Mejia. ANESTHESIOLOGIST: Dr. Singh. ANESTHESIA: General. 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 OPERATIVE PROCEDURE: 1. Right wrist radial styloidectomy. 2. Right wrist corticosteroid injection. ESTIMATED BLOOD LOSS: 2 mL. COMPLICATIONS: None. FINDINGS: See above and below. DESCRIPTION OF PROCEDURE: Mr. Tanner was seen in the preoperative holding area. The correct site, side, and procedure were identified. We came back to the operating room. The arm was prepped, draped in the usual fashion and a time-out was preformed. The arm was exsanguinated and the tourniquet was inflated. I made a 3-5 cm longitudinal incision over the dorsal radial wrist just dorsal to the radial styloid. Dissection was carried down. The radial sensory nerve was retracted palmarly. I utilized the interval between the first and second dorsal compartment to subperiosteally dissect and expose the radial styloid, which was very beaked and arthritic. Sagittal saw was used to perform a radial styloidectomy. A Bramwell elevator was placed to protect the cartilage on the scaphoid, which definitely was thin. I then brought in the mini C-arm fluoroscopy and checked the level of my styloidectomy. The osteophyte on the lateral aspect of the scaphoid was seen. I decided to take just another couple of millimeters and so I did that. I then confirmed everything on mini C-arm fluoroscopy. I thought everything looked good there. I therefore irrigated out and then placed bone wax on the cancellous bone where I performed styloidectomy. The skin was then closed with 4-0 Monocryl. I then lastly introduced 25 gauge needle into the radiocarpal joint and injected 2 mL of 1% lidocaine and 2 mL of dexamethasone. The wounds were reinforced with Steri- Strips. It was dressed and a soft dressing was applied. He was taken to the recovery room in stable condition. [id number]/[facility] #: [id number] [facility]
== END 2019-06-24 12:15 | disposition home or self-care (01) ==
LOC: OR 07:40
PROVIDERS: ATTEND Orthopaedic Surgery Hand Surgery
DX: M19.031 Primary osteoarthritis, right wrist (principal); I10 Essential (primary) hypertension; E78.5 Hyperlipidemia, unspecified; Z86.718 Personal history of other venous thrombosis and embolism; Z86.711 Personal history of pulmonary embolism; I48.0 Paroxysmal atrial fibrillation; R60.9 Edema, unspecified
CPT/HCPCS: 88304; 88311; A9270-GY; J0690; J1100; J1885; J2250; J2405; J2704; J3010; J3490

== ENCOUNTER 2020-09-23 18:58 | Inpatient (IN) ==
[2020-09-23] MEDS ORDERED: Diltiazem IV push/loading dose 5 MG/ML 5 ML vial (25 mg) IV SLOW PU ONE (20:36)
[2020-09-23 21:17] LABS: ABS Basophils 0.1 10^3/ul (0-0.2); ABS Eosinophils 0.2 10^3/ul (0-0.6); ABS Lymphocytes 2.2 10^3/ul (1.0-4.8); ABS Monocytes 0.7 10^3/ul (0-0.8); ABS Neutrophils 4.4 10^3/ul (1.5-7.7); Eosinophil % 2.5 %; Hematocrit 42 % (42-52); Hemoglobin 14.7 g/dL (14.0-18.0); Lymphocyte % 28.6 %; Mean Corpuscular HGB Conc 35 g/dL (31-36); Mean Corpuscular Hemoglobin 31 pg (27-31); Mean Corpuscular Volume 88 fL (80-94); Mean Platelet Volume 9.9 fL (7.4-10.4); Platelet Count 246 10^3/uL (150-450); Red Blood Count 4.75 10^6 /uL (4.18-5.48); Red Cell Distribution Width 14 % (10-15); White Blood Count 7.6 10^3/uL (3.5-10.8)
[2020-09-23 21:53] LABS: ALT 19 U/L (7-52); AST 18 U/L (13-39); Albumin/Globulin Ratio 1.4 (1-3); Alkaline Phosphatase 66 U/L (35-149); Anion Gap 7 mmol/L (2-11); Blood Urea Nitrogen 27 mg/dL (6-24); CO2 Carbon Dioxide 25 mmol/L (22-32); Chloride 109 mmol/L (101-111); EGFR African American 69.6 (>60); EGFR Non-African American 57.5 (>60); Globulin 2.9 g/dL (2-4); Glucose 124 mg/dL (70-100); Potassium 4.1 mmol/L (3.5-5.0); Sodium 141 mmol/L (135-145); TSH Ultra Thyroid Stim Horm 2.53 mcIU/mL (0.34-5.60); Total Protein 6.9 g/dL (6.4-8.9)
[2020-09-23] MEDS ORDERED: Iodixanol (CONTRAST) 320 MG/ML 100 ML SDV IV ONE (21:58)
[2020-09-23 23:04] LABS: Troponin I 0.01 ng/mL (<0.03)
[2020-09-23 23:41] LABS: Activated Partial Thrombo Time 26.8 seconds (26.0-38.0); INR 1.03 (0.82-1.09)
[2020-09-24 03:46] LABS: Troponin I 0.01 ng/mL (<0.03)
[2020-09-24 06:56] LABS: Calcium 8.7 mg/dL (8.6-10.3); EGFR African American 74.3 (>60); EGFR Non-African American 61.4 (>60); Potassium 3.9 mmol/L (3.5-5.0)
[2020-09-24 08:28] LABS: Magnesium 2.1 mg/dL (1.9-2.7)
[2020-09-24] MEDS ORDERED: Metoprolol Tartrate 5 mg VIAL 5 ml VIAL (1 mg/ml) IV ONE (13:33)
[2020-09-24] MEDS ORDERED: Metoprolol Tartrate 5 mg VIAL 5 ml VIAL (1 mg/ml) IV PRN (16:04)
[2020-09-25 07:50] LABS: Calcium 8.9 mg/dL (8.6-10.3); Magnesium 2.1 mg/dL (1.9-2.7); Potassium 4.3 mmol/L (3.5-5.0)
[2020-09-25 07:55] LABS: EGFR African American 82.9 (>60); EGFR Non-African American 68.5 (>60)
[2020-09-25 11:13] VITALS: BP 119/74
== END 2020-09-25 14:07 | disposition home or self-care (01) ==
LOC: ED 18:58 → MEDTELE 09-24 00:55
PROVIDERS: ADMIT Internal Medicine; ATTEND Pediatrics

== ENCOUNTER 2022-03-14 06:00 | Inpatient (IN) ==
[~2022-03-14 06:00] MED LIST changes: -Acetaminophen TAB* 325 MG PO ONE; +Buffered Lidocaine 1% SYRIN 1 ml INTRADERM ONE; -Buffered Lidocaine 1% SYRIN* 1 ML/SYRINGE INTRADERM ONE; -Famotidine IV* 10 MG/ML 2 ML (20 mg) IV ONE; -Gabapentin CAP(*) 300 MG PO ONE; -Lactated Ringers 1000 ML Bag* 1,000 ML IV SCH; +Lactated Ringers 1000 ml BAG 1,000 ML IV SCH
[2022-03-14] MEDS ORDERED: ceFAZolin 2 GM PREMIX 2 GM/50 ML BAG ONE (06:19)
[2022-03-14] MEDS ORDERED: Midazolam 2 mg/2 ml VIAL 1 mg/ml 2 ml VIAL (2 mg) ONE (06:52)
[2022-03-14] MEDS ORDERED: Ondansetron 4 mg VIAL 2 MG/ML 2 ml VIAL ONE (07:10)
[2022-03-14] MEDS ORDERED: Propofol 10 MG/ML 20 ML BTL ONE ×2 (07:10)
[2022-03-14] MEDS ORDERED: Dexamethasone IV 4 MG/ML VIAL 1 ml VIAL ONE (07:10)
[2022-03-14] MEDS ORDERED: Lidocaine 2% PF 5 ML VIAL ONE (07:10)
[2022-03-14] MEDS ORDERED: Rocuronium 50 mg VIAL 10 mg/ml 5 ml VIAL (50 mg) ONE ×2 (07:10→09:35)
[2022-03-14] MEDS ORDERED: fentaNYL 100 mcg/2 ml 50 MCG/ML VIAL ONE (07:12)
[2022-03-14] MEDS ORDERED: ROPIVACAINE 5 MG/ML 30 ML BTL (0.5%) ONE (07:14)
[2022-03-14] MEDS ORDERED: Vancomycin 1,000 MG VIAL ONE (07:44)
[2022-03-14] MEDS ORDERED: Phenylephrine IV 10 MG/ML 1 ml VIAL ONE (08:21)
[2022-03-14] MEDS ORDERED: Phenylephrine 40 mcg/mL 10mL (400mcg) SYRINGE ONE (08:21)
[2022-03-14] MEDS ORDERED: Ondansetron 4 mg VIAL 2 MG/ML 2 ml VIAL IV PRN ×2 (08:24→12:17)
[2022-03-14] MEDS ORDERED: Naloxone 0.4 mg VIAL 0.4 mg/ml 1 ml VIAL IV PRN (08:24)
[2022-03-14] MEDS ORDERED: Acetaminophen IV 1 GM/100ML 1,000 MG/100 ML BAG IV PRN (08:24)
[2022-03-14] MEDS ORDERED: fentaNYL 100 mcg/2 ml 50 MCG/ML VIAL IV PRN (08:24)
[2022-03-14] MEDS ORDERED: HYDROmorphone 1 MG/1 ML SYRINGE IV PRN (08:24)
[2022-03-14] MEDS ORDERED: Ondansetron ODT 4 mg TAB 4 MG TAB PO PRN (12:17)
[2022-03-14] MEDS ORDERED: Morphine 2 MG/ML SYRINGE IV PRN (12:17)
[2022-03-14] MEDS ORDERED: Lactulose 30 ml UDC PO PRN (12:17)
[2022-03-14] MEDS ORDERED: Magnesium Hydroxide LIQ 30 ML UDC PO PRN (12:17)
[2022-03-14] MEDS: Lactated Ringers 1000 ml BAG 1,000 ML IV SCH ×2 (13:51→23:40)
[2022-03-14] MEDS: ceFAZolin 1 GM ADVAN 1 GM in NS 0.9% 50 ML 50 ML IVPB SCH ×2 (15:55→23:36)
[2022-03-14] MEDS: Magnesium Hydroxide LIQ 30 ML UDC PO SCH (20:21)
[2022-03-15 06:43] LABS: Hematocrit 37 % (42-52); Hemoglobin 12.9 g/dL (14.0-18.0); Mean Platelet Volume 9.9 fL (7.4-10.4); Platelet Count 198 10^3/uL (150-450)
[2022-03-15 06:56] LABS: Calcium 8.4 mg/dL (8.6-10.3); Potassium 4.5 mmol/L (3.5-5.0); eGFR CKD-EPI 64.9 (>60)
[2022-03-15] MEDS: ceFAZolin 1 GM ADVAN 1 GM in NS 0.9% 50 ML 50 ML IVPB SCH (07:46)
[2022-03-15] MEDS: Magnesium Hydroxide LIQ 30 ML UDC PO SCH (07:47)
[2022-03-15] MEDS ORDERED: Vitamin THERAPEUTIC TAB PO SCH (09:00)
[2022-03-15] MEDS ORDERED: Coenzyme Q10 CAP (NF) ** ENTER STREGNTH IN LABEL DIRECTIONS PO SCH (09:00)
[2022-03-15 11:43] VITALS: BP 135/79
== END 2022-03-15 12:00 | disposition home or self-care (01) | DRG 322 ==
LOC: AA 06:00 → SSU 13:51
PROVIDERS: ADMIT Orthopaedic Surgery; ATTEND Orthopaedic Surgery